=== PATIENT | female | born 1960 | race Caucasian/White ===

== ENCOUNTER 2019-11-01 01:25 | Emergency (ER) | payer OTHER, SELFPAY ==
[2019-11-01 03:05] LABS: Absolute Lymphocytes (CBC) 0.5 K/uL (0.7-4.9); Basophils % 0.7 % (0-1.3); Hematocrit 37.4 % (36.0-45.0); Lymphocytes % 18.1 % (15.3-44.8); MPV 7.3 fL (7.6-11.3); RBC Red Blood Cell Count 4.32 M/uL (3.86-4.86)
[2019-11-01] MEDS ORDERED: ONDANSETRON 4 MG/2 ML VIAL ONE (03:17)
[2019-11-01 03:26] LABS: Bilirubin Direct 0.2 mg/dL (0-0.2); Bilirubin Total 0.5 mg/dL (0.2-1.0); Protein, Total 7.1 g/dL (6.4-8.2)
--- NOTE | 2019-11-01 04:19 | EDPHYS ---
Physician Documentation [facility] Name: Mattie Cortes Age: 59 yrs Sex: Female : 1960 Arrival Date: 11/01/2019 Time: 01:30 Bed 7 Private MD: ED Physician Thomas Gonzalez HPI: 10/31 07:04 This 59 yrs old Female presents to ER via Wheelchair with complaints of tw4 Nausea, Dizziness, hungry but unableto eat. 07:04 The patient presents to the emergency department with nausea. tw4 Historical: - Allergies: 02:24 No Known Allergies; ea - Home Meds: 02:24 None [Active]; ea - PMHx: 02:24 Diabetes - NIDDM; ea - PSHx: 02:24 Cholecystectomy; bilateral shoulder; Hysterectomy; Knee surgery; ea - Immunization history:: Adult Immunizations up to date. - Social history:: Smoking status: unknown. ROS: 07:05 Constitutional: Negative for fever, chills, and weight loss, Eyes: Negative for injury, tw4 pain, redness, and discharge, Cardiovascular: Negative for chest pain, palpitations, and edema, Respiratory: Negative for shortness of breath, cough, wheezing, and pleuritic chest pain. 07:05 Back: Negative for injury and pain, MS/Extremity: Negative for injury and deformity, Skin: Negative for injury, rash, and discoloration. 07:05 Abdomen/GI: Positive for nausea, Negative for abdominal pain, nausea and vomiting, nausea, vomiting, and diarrhea. 07:05 Neuro: Positive for dizziness, Negative for altered mental status, gait disturbance, headache, hearing loss, loss of consciousness, numbness, seizure activity, speech changes, syncope, near syncope, tingling, tinnitus, tremor, visual changes, weakness, acute changes. Exam: 07:05 Constitutional: This is a well developed, well nourished patient who is awake, alert, tw4 and in no acute distress. Head/Face: Normocephalic, atraumatic. Chest/axilla: Normal chest wall appearance and motion. Nontender with no deformity. No lesions are appreciated. Cardiovascular: Regular rate and rhythm with a normal S1 and S2. No gallops, murmurs, or rubs. Normal PMI, no JVD. No pulse deficits. Respiratory: Lungs have equal breath sounds bilaterally, clear to auscultation and percussion. No rales, rhonchi or wheezes noted. No increased work of breathing, no retractions or nasal flaring. Abdomen/GI: Soft, non-tender, with normal bowel sounds. No distension or tympany. No guarding or rebound. No evidence of tenderness throughout. Back: No spinal tenderness. No costovertebral tenderness. Full range of motion. MS/ Extremity: Pulses equal, no cyanosis. Neurovascular intact. Full, normal range of motion. Neuro: Awake and alert, GCS 15, oriented to person, place, time, and situation. Cranial nerves II-XII grossly intact. Motor strength 5/5 in all extremities. Sensory grossly intact. Cerebellar exam normal. Normal gait. Vital Signs: 01:30 BP 126 / 68; Pulse 84; Resp 18; Temp 99; Pulse Ox 100% ; Weight 108.86 kg; Height 5 ft. ea 5 in. (165.10 cm); 04:15 BP 115 / 70; Pulse 80; Resp 17; Temp 98; Pulse Ox 97% on R/A; rv 01:30 Body Mass Index 39.94 (108.86 kg, 165.10 cm) ea MDM: 03:16 Patient medically screened. tw4 07:07 Differential diagnosis: Nonspecific abd pain, gastritis, pancreatitis, appendicitis. tw4 Data reviewed: vital signs, nurses notes. Data interpreted: patient clerical assistant: rhythm is Pulse oximetry: Interpretation: normal. Counseling: I had a detailed discussion with the patient and/or guardian regarding: the historical points, exam findings, and any diagnostic results supporting the discharge/admit diagnosis, lab results, radiology results. Medication response: Zofran relieved the patient's nausea. Response to treatment: and as a result, I will discharge patient. Special discussion: I discussed with the patient/guardian in detail that at this point there is no indication for admission to the hospital. It is understood, however, that if the symptoms persist or worsen the patient needs to return immediately for re-evaluation. ED course: Pt states she feel better after hydration and zofran. 10/31 02:26 Order name: Basic Metabolic Panel; Complete Time: 04:15 ea 10/31 04:15 Interpretation: Normal except: NA 132; GFR 55; GLUC 302. tw4 10/31 02:26 Order name: CBC with Diff; Complete Time: 04:15 10/31 04:16 Interpretation: Normal except: WBC 3.0; PLT 137; RDW 15.4; MELISSA% 75.2; MPV 7.3. 10/31 02:26 Order name: Creatinine for Radiology; Complete Time: 04:15 10/31 02:26 Order name: Hepatic Function; Complete Time: 04:15 10/31 04:16 Interpretation: Normal except: AST 72; ALB 3.0; GLOB 4.1; A/G 0.7. 10/31 02:26 Order name: Lipase; Complete Time: 04:15 10/31 04:16 Interpretation: Within normal limits: LIP 121. 10/31 02:26 Order name: IV Saline Lock; Complete Time: 03:09 10/31 02:26 Order name: Labs collected and sent; Complete Time: 03:09 ea Administered Medications: 03:11 Drug: NS 0.9% 1000 ml Route: IV; Rate: 1 bolus; Site: right antecubital; rv 04:50 Follow up: IV Status: Completed infusion; IV Intake: 1000ml rv 03:11 Drug: Zofran (Ondansetron) 4 mg Route: IVP; Site: right antecubital; rv 04:50 Follow up: Response: Marked relief of symptoms rv 04:09 Drug: NS 0.9% 1000 ml Route: IV; Rate: 1 bolus; Site: right antecubital; rv 04:49 Follow up: IV Status: Completed infusion; IV Intake: 500ml rv 04:29 Drug: Insulin Regular Human 4 units {Co-Signature: (Mattie Huynh RN).} Route: IVP; rv Site: right antecubital; 04:49 Follow up: Response: Medication administered at discharge. rv Disposition: 11/01/19 04:18 Discharged to Home. Impression: Dizziness and giddiness, Nausea, Dehydration, Thrombocytopenia, unspecified. - Condition is Stable. - Discharge Instructions: Dehydration, Adult, Dizziness, Nausea, Adult, Thrombocytopenia. - Prescriptions for Meclizine 25 mg Oral Tablet - take 1 tablet by ORAL route every 8 hours As needed; 30 tablet. Zofran 4 mg Oral Tablet - take 1 tablet by ORAL route every 12 hours As needed; 6 tablet. - Medication Reconciliation Form, Thank You Letter, Antibiotic Education, Prescription Opioid Use form. - Follow up: Private Physician; When: Upon discharge from the Emergency Department; Reason: Recheck today's complaints, Continuance of care, Re-evaluation by your physician. - Problem is new. - Symptoms have improved. Signatures: Dispatcher [employer] EDMS Hermelinda Jaime RN RN lp1 Asha Zafar RN RN ea Wadley, Terrence, MD MD tw4 Yonathan Triplett RN RN rv Amy Harris RN Corrections: (The following items were deleted from the chart) 04:19 04:18 11/01/2019 04:18 Discharged to Home. Impression: Dizziness and giddiness; Nausea. tw4 Condition is Stable. Forms are Medication Reconciliation Form, Thank You Letter, Antibiotic Education, Prescription Opioid Use. Follow up: Private Physician; When: Upon discharge from the Emergency Department; Reason: Recheck today's complaints, Continuance of care, Re-evaluation by your physician. Problem is new. Symptoms have improved. tw4 04:24 04:19 11/01/2019 04:18 Discharged to Home. Impression: Dizziness and giddiness; Nausea; tw4 Dehydration. Condition is Stable. Forms are Medication Reconciliation Form, Thank You Letter, Antibiotic Education, Prescription Opioid Use. Follow up: Private Physician; When: Upon discharge from the Emergency Department; Reason: Recheck today's complaints, Continuance of care, Re-evaluation by your physician. Problem is new. Symptoms have improved. tw4 04:51 04:24 11/01/2019 04:18 Discharged to Home. Impression: Dizziness and giddiness; Nausea; rv Dehydration; Thrombocytopenia, unspecified. Condition is Stable. Discharge Instructions: Dehydration, Adult, Dizziness, Nausea, Adult. Prescriptions for Meclizine 25 mg Oral Tablet - take 1 tablet by ORAL route every 8 hours As needed; 30 tablet, Zofran 4 mg Oral Tablet - take 1 tablet by ORAL route every 12 hours As needed; 6 tablet. and Forms are Medication Reconciliation Form, Thank You Letter, Antibiotic Education, Prescription Opioid Use. Follow up: Private Physician; When: Upon discharge from the Emergency Department; Reason: Recheck today's complaints, Continuance of care, Re-evaluation by your physician. Problem is new. Symptoms have improved. tw4
--- NOTE | 2019-11-01 04:19 | ER ---
Nurse's Notes [facility] Name: Mattie Cortes Age: 59 yrs Sex: Female : 1960 Arrival Date: 11/01/2019 Time: 01:30 Bed 7 Private MD: Diagnosis: Dizziness and giddiness;Nausea;Dehydration;Thrombocytopenia, unspecified Presentation: 10/31 01:30 Chief complaint: Patient states: Pt reports having nausea, dizziness and feeling hungry ea and unable to eat without feeling nauseous since Sunday. Coronavirus screen: The patient has NOT traveled to a country currently being monitored by the [facility] within the last 14 days. Ebola Screen: No symptoms or risks identified at this time. Initial Sepsis Screen: Does the patient meet any 2 criteria? No. Patient's initial sepsis screen is negative. Does the patient have a suspected source of infection? No. Patient's initial sepsis screen is negative. Risk Assessment: Do you want to hurt yourself or someone else? Patient reports no desire to harm self or others. 01:30 Method Of Arrival: Wheelchair ea 01:30 Acuity: SWATHI 3 ea 03:10 Onset of symptoms is unknown. rv Triage Assessment: 02:25 General: Appears in no apparent distress. Behavior is appropriate for age. Pain: Denies ea pain. Neuro: Level of Consciousness is awake, alert, obeys commands, Oriented to person, place, time. Respiratory: Airway is patent Respiratory effort is even, unlabored, Respiratory pattern is regular, symmetrical. GI: Reports nausea. Derm: Skin is pink, warm \T\ dry. Historical: - Allergies: 02:24 No Known Allergies; ea - Home Meds: 02:24 None [Active]; ea - PMHx: 02:24 Diabetes - NIDDM; ea - PSHx: 02:24 Cholecystectomy; bilateral shoulder; Hysterectomy; Knee surgery; ea - Immunization history:: Adult Immunizations up to date. - Social history:: Smoking status: unknown. Screenin:23 Abuse screen: Denies threats or abuse. Nutritional screening: No deficits noted. ea Tuberculosis screening: No symptoms or risk factors identified. Fall Risk None identified. Assessment: 03:09 General: Appears in no apparent distress. comfortable, Behavior is calm, cooperative. rv Pain: Denies pain. Neuro: Level of Consciousness is awake, alert, obeys commands, Oriented to person, place, time, situation. Cardiovascular: Patient's skin is warm and dry. Respiratory: Airway is patent. GI: Reports nausea. GI: Abdomen is round non-distended, Bowel sounds present X 4 quads. Derm: Skin is intact. 04:48 Reassessment: Patient appears in no apparent distress at this time. Patient and/or rv family updated on plan of care and expected duration. Pain level reassessed. Patient is alert, oriented x 3, equal unlabored respirations, skin warm/dry/pink. Vital Signs: 01:30 BP 126 / 68; Pulse 84; Resp 18; Temp 99; Pulse Ox 100% ; Weight 108.86 kg; Height 5 ft. ea 5 in. (165.10 cm); 04:15 BP 115 / 70; Pulse 80; Resp 17; Temp 98; Pulse Ox 97% on R/A; rv 01:30 Body Mass Index 39.94 (108.86 kg, 165.10 cm) ea ED Course: 01:30 Patient arrived in ED. es 01:50 Asha Zafar, KIRT is Primary Nurse. ea 02:23 Triage completed. ea 02:24 Patient has correct armband on for positive identification. Placed in gown. Bed in low ea position. Call light in reach. Side rails up X2. 02:24 Arm band placed on right wrist. Patient placed in an exam room, on a stretcher, on ea pulse oximetry. 02:27 Thomas Gonzalez MD is Attending Physician. tw4 03:55 No provider procedures requiring assistance completed. Inserted saline lock: 18 gauge rv in right antecubital area, using aseptic technique. Blood collected. 04:50 IV discontinued, intact, bleeding controlled, No redness/swelling at site. Pressure rv dressing applied. Administered Medications: 03:11 Drug: NS 0.9% 1000 ml Route: IV; Rate: 1 bolus; Site: right antecubital; rv 04:50 Follow up: IV Status: Completed infusion; IV Intake: 1000ml rv 03:11 Drug: Zofran (Ondansetron) 4 mg Route: IVP; Site: right antecubital; rv 04:50 Follow up: Response: Marked relief of symptoms rv 04:09 Drug: NS 0.9% 1000 ml Route: IV; Rate: 1 bolus; Site: right antecubital; rv 04:49 Follow up: IV Status: Completed infusion; IV Intake: 500ml rv 04:29 Drug: Insulin Regular Human 4 units {Co-Signature: cy (Mattie Huynh RN).} Route: IVP; rv Site: right antecubital; 04:49 Follow up: Response: Medication administered at discharge. rv Intake: 04:49 IV: 500ml; Total: 500ml. rv 04:50 IV: 1000ml; Total: 1500ml. rv Outcome: 04:18 Discharge ordered by MD. saravia 04:50 Discharged to home ambulatory, with family. rv 04:50 Condition: good 04:50 Discharge instructions given to patient, family, Instructed on discharge instructions, follow up and referral plans. medication usage, Demonstrated understanding of instructions, follow-up care, medications, Prescriptions given X 3. 04:51 Patient left the ED. rv Signatures: Emily Cole Elena, RN RN Thomas Dukes MD MD tw4 Yonathan Triplett RN RN rv Mattie benoit
[2019-11-01] MEDS ORDERED: INSULIN -REGULAR HUMAN 50 UNIT/0.5 ML ML ONE (04:32)
[2019-11-01 05:19] VITALS: BP 115/70; TEMP 98; O2SAT 97
== END 2019-11-01 04:51 | disposition home or self-care (01) ==
LOC: ER 01:25
DX: R11.0 Nausea (principal); E86.0 Dehydration; D69.6 Thrombocytopenia, unspecified
CPT/HCPCS: 36415; 80048; 80076; 83690; 85025; 96361; 96374; 96375; 99284; J2405

== ENCOUNTER 2024-05-19 11:36 | Emergency (ER) | payer OTHER ==
--- OUTSIDE RECORDS SUMMARY | 2024-05-19 11:38 | XMS REPORT | Continuity of Care Document ---
Author Name Unknown Address [address] [place] [address] [address] th[address] Address [address] [facility]. [address] [place] [address] Care Team Providers Care Conservation Educator Name Role Phone RICK ROSSI Attending Clinician Unavailable MELY CAMPA Attending Clinician Unavailable IVETTE ALBRIGHT Attending Clinician Unavailable LAB90 Attending Clinician Unavailable SAUNDRA GARCIA Attending Clinician Unavailable [email or web address] Attending Clinician Unavaila ble [email or web address] Admitting Clinician Unavaila ble Payers Payer Name Policy Type Policy Number Effective Date Expirati on Date Source [facility] [id number] 7 [id number] 2024 00:00:00 Social History Social Habit Start Date Stop Date Quantity Comments Source Sexual orientation Shanell Curtis - External Tobacco use and exposure 2024-04-23 00:00:00 2024-04-23 00:00:00 Smokeless tobacco non-user Jeffery Curtis - External Alcoholic beverage intake 2024-04-23 00:00:00 2024-04-23 00:00:00 Ex-drinker (finding) Jeffery Curtis - External History of Social function 2024-04-23 00:00:00 2024-04-23 00:00:00 Jeffery Curtis - External Education 2024-04-23 00:00:00 2024-04-23 00:00:00 16 Jeffery Curtis - External Sex assigned at 1960 00:00:00 1960 00:00:00 Jeffery Seybold - External Smoking Status Start Date Stop Date Source Never smoked tobacco Jeffery Curtis - External Medications Ordered Medication Name Filled Medication Name Start Date Stop Date Current Medication? Ordering Clinician Indication Dosage Frequency Signature (SIG) Comments Components Source Fluconazole 150 MG oral Tablet 04-23 15:22: 15 Yes [id number] 150mg Take 1 tablet (150 mg total) by mouth once for 1 dose. Jeffery Curtis - Externa l Cefdinir 300 MG oral Capsule 04-23 00:00: 00 Yes [id number] 300mg Q.5D Take 1 capsule (300 mg total) by mouth 2 times daily. Jeffery Claireold - Externa l Vital Signs Vital Name Observation Time Observation Value Comments S ource Systolic blood pressure 2024-04-23 20:06:00 134 mm[Hg] Jefferygamaliel Claireo ld - External Diastolic blood pressure 2024-04-23 20:06:00 81 mm[Hg] Jeffery gordyo ld - External Heart rate 2024-04-23 20:06:00 78 /min Florina brody Kirsten - External Respiratory rate 2024-04-23 20:06:00 16 /min Jeffery gordyady - External Body height 2024-04-23 20:06:00 162.6 cm Crystal peñaloza Seybold - External Body weight 2024-04-23 20:06:00 65.772 kg Crystal peñaloza Seybold - External BMI 2024-04-23 20:06:00 24.89 kg/m2 Crystal Claireold - External Oxygen saturation in Arterial blood by Pulse oximetry 2024-04-23 20:06:00 100 /min Jeffery Rowland ld - External Encounters Start Date/Time End Date/Time Encounter Type Admission Type Attending [facility] Care Department Encounter ID Source 2024-06-27 10:30:00 2024-06-27 10:30:00 Outpatient RICK ROSSI [id number] Jeffery Curtis 2024-06-02 15:30:00 2024-06-02 15:30:00 Outpatient MELY CAMPA [id number] Jeffery Curtis 2024-05-20 10:30:00 2024-05-20 10:30:00 Outpatient IVETTE ALBRIGHT [id number] [facility] 2024-05-02 14:35:00 2024-05-02 14:35:00 Outpatient LAB90 JEFFERY GIL [id number] Jeffery [facility] 2024-05-02 00:00:00 2024-05-02 00:00:00 Outpatient MELY CAMPA JEFFERY GIL [id number] [facility] 2024-04-25 00:00:00 2024-04-25 00:00:00 Outpatient LOKESH MELY GIL [id number] [facility] 2024-04-23 16:15:00 2024-04-23 16:15:00 Outpatient LAB90 JEFFERY GIL [id number] [facility] 2024-04-23 15:00:00 2024-04-23 15:00:00 Outpatient MELY CAMPA JEFFERY GIL [id number] [facility] 2024-04-17 08:30:00 2024-04-17 08:30:00 Outpatient SAUNDRA GARCIA [id number] [facility] 2023-06-20 00:00:00 2023-06-20 00:00:00 Outpatient [email or web address] [email or web address]_S PRIV [facility] [id number] [facility]
[2024-05-19] MEDS ORDERED: KETOROLAC 30 MG/ML INJ ONE (12:04)
[2024-05-19 12:35] LABS: Urine Bilirubin NEGATIVE (Negative); Urine Blood Negative (Negative); Urine Clarity Clear (Clear); Urine Color Yellow (Yellow); Urine Glucose NEGATIVE (Negative); Urine Ketones NEGATIVE (Negative); Urine Microscopic Reflex YN NO UMIC; Urine Nitrite NEGATIVE (Negative); Urine Protein NEGATIVE (Negative); Urine Urobilinogen Normal (Normal); Urine pH 6.5 (5.0-7.0)
[2024-05-19 12:39] LABS: Absolute Eosinophils 0.1 K/uL (0-0.5); Absolute Lymphocytes (CBC) 1.8 K/uL (0.7-4.9); Absolute Monocytes 0.4 K/uL (0.1-1.3); Absolute Neutrophil 3.7 K/uL (1.8-8.0); Basophils % 0.5 % (0-1.3); Eosinophils % 1.5 % (0-4.4); Hematocrit 38.2 % (36.0-45.0); Hemoglobin 12.9 g/dL (12.0-15.0); Lymphocytes % 29.9 % (15.3-44.8); MCH 32.2 pg (27.0-35.0); MCHC 33.9 g/dL (32.0-36.0); MCV 94.8 fL (80-100); MPV 7.4 fL (7.6-11.3); Monocytes % 6.5 % (3.3-12.3); Neutrophils % 61.6 % (41.7-73.7); Platelets 278 thou/uL (152-406); RBC Red Blood Cell Count 4.02 M/uL (3.86-4.86); Red Cell Distribution Width 12.5 % (12.1-15.2)
[2024-05-19 12:50] LABS: Albumin 4.3 g/dL (3.4-5.0); Albumin/Globulin Ratio 1.4 (1.1-1.8); Bilirubin Total 0.5 mg/dL (0.2-1.0); Globulin 3.1 g/dL (2.3-3.5); Protein, Total 7.4 g/dL (6.4-8.2)
--- NOTE | 2024-05-19 13:19 | RAD REPORT ---
EXAMINATION: CT ABDOMEN AND PELVIS WITH CONTRAST CLINICAL INDICATION: Abdominal pain TECHNIQUE: CT abdomen and pelvis was performed, after the administration of 100 cc Isovue-300.. Sagit humphrey and coronal reconstructions were obtained. One or more of the following dose reduction techniques were used: Automated exposure control, adjustment of the mA and/or kV according to patien t size, and/or iterative reconstruction. Unless otherwise specified, incidental findings do not require dedicated imaging follow-up. [id number]. Oral contrast was not given which limits evaluation of b owel and appendix. COMPARISON: 2014 FINDINGS: Cholecystectomy The liver, spleen, pancreas, adrenals and right kidney appear unremarkable 2 cm left renal cyst There is no evidence of diverticulitis. Normal appendix Hysterectomy. No adnexal mass. Large amount stool present throughout colon Wall of the distal stomach appears thickened. : IMPRESSION: Large amount of stool present throughout the colon Apparent thickening wall of the distal stomach could be secondary to incomplete distention or inflamm ation
[2024-05-19] MEDS ORDERED: TRAMADOL HCL 50 MG TAB ONE (14:01)
--- NOTE | 2024-05-19 14:04 | ER ---
Nurse's Notes [facility] Name: Mattie Cortes Age: 64 yrs Sex: Female : 1960 Arrival Date: 05/19/2024 Time: 11:36 Bed 7 Private MD: Diagnosis: Dysuria;Constipation, unspecified Presentation: 05/19 11:42 Chief complaint: Patient states: was here last week, is having vaginal pain/pressure, iw burning all the time. Coronavirus screen: At this time, the client does not indicate any symptoms associated with coronavirus-19. Ebola Screen: No symptoms or risks identified at this time. Initial Sepsis Screen: Does the patient meet any 2 criteria? No. Patient's initial sepsis screen is negative. Does the patient have a suspected source of infection? No. Patient's initial sepsis screen is negative. Risk Assessment: Do you want to hurt yourself or someone else? Patient reports no desire to harm self or others. Onset of symptoms was January 2024. 11:42 Method Of Arrival: Ambulatory iw 11:42 Acuity: SWATHI 3 iw Triage Assessment: 11:46 General: Appears uncomfortable, Behavior is anxious, crying. Pain: Complains of pain in iw pelvis. Historical: - Allergies: 11:42 No Known Allergies; iw - PMHx: 11:42 Diabetes - NIDDM; iw - PSHx: 11:42 Bladder stretched; Cholecystectomy; Total abdominal hysterectomy; iw - Family history:: not pertinent. - Hospitalizations: : No recent hospitalization is reported. Screenin:00 [facility] ED Fall Risk Assessment (Adult) History of falling in the last 3 months, aa5 including since admission No falls in past 3 months (0 pts) Confusion or Disorientation No (0 pts) Intoxicated or Sedated No (0 pts) Impaired Gait No (0 pts) Mobility Assist Device Used No (0 pt) Altered Elimination No (0 pt) Score/Fall Risk Level 0 - 2 = Low Risk Oriented to surroundings, Maintained a safe environment, Educated pt \T\ family on fall prevention, incl call for assistance when getting out of bed. Abuse screen: Denies threats or abuse. Nutritional screening: No deficits noted. Tuberculosis screening: No symptoms or risk factors identified. Assessment: 12:00 General: Appears uncomfortable, Behavior is calm, cooperative. Pain: Complains of pain aa5 in vaginal Quality of pain is described as burning, pressure, Pain began approximately 2-3 months ago. Neuro: Level of Consciousness is awake, alert, obeys commands, Oriented to person, place, time, situation. Cardiovascular: Patient's skin is warm and dry. Respiratory: Airway is patent Respiratory effort is even, unlabored, Respiratory pattern is regular, symmetrical. GI: No signs and/or symptoms were reported involving the gastrointestinal system. : Reports vaginal burning and pressure Denies burning with urination, discharge, inability to void, urinary frequency, vaginal bleeding. EENT: No signs and/or symptoms were reported regarding the EENT system. Derm: Skin is pink, warm \T\ dry. Musculoskeletal: Range of motion: intact in all extremities. 12:20 Reassessment: Patient is alert, oriented x 3, equal unlabored respirations, skin aa5 warm/dry/pink. 14:04 Reassessment: Patient is alert, oriented x 3, equal unlabored respirations, skin aa5 warm/dry/pink. Patient states feeling better. 14:40 Reassessment: Patient is alert, oriented x 3, equal unlabored respirations, skin aa5 warm/dry/pink. Vital Signs: 11:42 BP 124 / 78; Pulse 91; Resp 16; Temp 97.8; Pulse Ox 100% on R/A; iw 14:04 BP 126 / 80; Pulse 88; Resp 16 S; Pulse Ox 100% on R/A; aa5 ED Course: 11:38 Patient arrived in ED. ra3 11:38 Phil Hawk MD is Attending Physician. rn 11:44 Triage completed. iw 11:45 Arm band placed on. iw 11:59 Corine Bradshaw, RN is Primary Nurse. aa5 12:00 Patient has correct armband on for positive identification. Bed in low position. Call aa5 light in reach. Side rails up X 1. Adult w/ patient. 12:12 Initial lab(s) drawn, by me, sent to lab. Urine collected: clean catch specimen, sent aa5 to lab. Inserted saline lock: 20 gauge in right antecubital area, using aseptic technique. Blood collected. Flushed with 10 mL NS. 13:03 CT Abd/Pelvis - IV Contrast Only In Process Unspecified. EDMS 14:40 No provider procedures requiring assistance completed. IV discontinued, intact, aa5 bleeding controlled, No redness/swelling at site. Pressure dressing applied. Administered Medications: 12:20 Drug: Ketorolac IVP 15 mg IVP once Route: IVP; Site: right antecubital; aa5 12:30 Follow up: Response: No adverse reaction aa5 14:02 Drug: traMADol PO 50 mg PO once Route: PO; aa5 14:40 Follow up: Response: No adverse reaction aa5 Medication: 13:54 VIS not applicable for this client. aa5 Outcome: 14:03 Discharge ordered by . rn 14:40 Discharged to home ambulatory, with family, aa5 14:40 Condition: stable 14:40 Discharge instructions given to patient, Instructed on discharge instructions, follow up and referral plans. medication usage, Demonstrated understanding of instructions, follow-up care, medications, Prescriptions given X 1, 14:42 Patient left the ED. aa5 Signatures: Dispatcher [employer] EDMeghana Thompson RN RN iw Nieto, Roman, MD MD rn Calderon, Audri, RN RN aa5 Joaquina Hollis 3
--- NOTE | 2024-05-19 14:04 | EDPHYS ---
Physician Documentation [facility] Name: Mattie Cortes Age: 64 yrs Sex: Female : 1960 Arrival Date: 05/19/2024 Time: 11:36 Bed 7 Private MD: ED Physician Phil Hawk HPI: 05/19 12:33 This 64 yrs old Female presents to ER via Ambulatory with complaints of Urinary Problem.rn 12:33 The patient presents with urinary symptoms. Onset: The symptoms/episode began/occurred rn "Months ago". Associated signs and symptoms: Pertinent positives: dysuria, urinary frequency, Pertinent negatives: fever, hematuria, vaginal bleeding, vaginal discharge. The patient has experienced similar episodes in the past. Patient reports months of pelvic pressure and urinary symptoms. Patient states "feels like my bottom is coming out ". Denies vaginal discharge or bleeding. Reports increased urinary frequency and dysuria. Seen here a week ago for possible urinary retention. Has appointment with image consultant tomorrow. Denies unintentional weight loss.. Historical: - Allergies: 11:42 No Known Allergies; iw - PMHx: 11:42 Diabetes - NIDDM; iw - PSHx: 11:42 Bladder stretched; Cholecystectomy; Total abdominal hysterectomy; iw - Family history:: not pertinent. - Hospitalizations: : No recent hospitalization is reported. ROS: 12:33 Constitutional: Negative for fever, chills, and weight loss, Cardiovascular: Negative rn for chest pain, palpitations, and edema, Respiratory: Negative for shortness of breath, cough, wheezing, and pleuritic chest pain, Abdomen/GI: Negative for abdominal pain, nausea, vomiting, diarrhea, and constipation, Back: Negative for injury and pain, : Positive for dysuria and increased urinary frequency Neuro: Negative for headache, weakness, numbness, tingling, and seizure, Exam: 12:33 Constitutional: This is a well developed, well nourished patient who is awake, alert, rn tearful Cardiovascular: Regular rate and rhythm. No pulse deficits. Respiratory: No increased work of breathing, no retractions or nasal flaring. Abdomen/GI: Soft, non-tender Neuro: Awake and alert, GCS 15. Motor strength 5/5 in all extremities. Cerebellar exam normal. Normal gait. Vital Signs: 11:42 BP 124 / 78; Pulse 91; Resp 16; Temp 97.8; Pulse Ox 100% on R/A; iw 14:04 BP 126 / 80; Pulse 88; Resp 16 S; Pulse Ox 100% on R/A; aa5 MDM: 11:38 Patient medically screened. rn 14:01 Differential diagnosis: kidney stone, malignancy, nonspecific abdominal pain, urinary rn tract infection, vaginosis. Data reviewed: vital signs, nurses notes, lab test result(s), radiologic studies, CT scan, and as a result, I will discharge patient. Counseling: I had a detailed discussion with the patient and/or guardian regarding the historical points, exam findings, and any diagnostic results supporting the discharge/admit diagnosis, lab results, radiology results, the need for outpatient follow up, to return to the emergency department if symptoms worsen or persist or if there are any questions or concerns that arise at home. Special discussion: I discussed with the patient/guardian in detail that at this point there is no indication for admission to the hospital. It is understood, however, that if the symptoms persist or worsen the patient needs to return immediately for re-evaluation. Special discussion: Based on the history and exam findings, there is no indication for further emergent testing or inpatient evaluation. I discussed with the patient/guardian the need to see the OB Gyne specialist for further evaluation of the symptoms. ED course: CT without acute findings. Patient with symptoms for months, no signs of urinary retention or bladder distention. Stable vital signs. Improved with Toradol and tramadol. Has appointment with urogynecology tomorrow. Return precautions given and understood.. 05/19 11:39 Order name: Urinalysis w/ reflexes; Complete Time: 13:30 rn 05/19 11:51 Order name: CBC with Diff; Complete Time: 13:30 rn 05/19 11:51 Order name: CMP; Complete Time: 13:30 rn 05/19 11:51 Order name: CT Abd/Pelvis - IV Contrast Only; Complete Time: 13:30 rn 05/19 11:51 Order name: IV Saline Lock; Complete Time: 12:26 rn 05/19 11:51 Order name: Labs collected and sent; Complete Time: 12:26 rn Administered Medications: 12:20 Drug: Ketorolac IVP 15 mg IVP once Route: IVP; Site: right antecubital; aa5 12:30 Follow up: Response: No adverse reaction aa5 14:02 Drug: traMADol PO 50 mg PO once Route: PO; aa5 14:40 Follow up: Response: No adverse reaction aa5 Disposition Summary: 05/19/24 14:03 Discharge Ordered Notes: Location: Home rn Problem: new rn Symptoms: have improved rn Condition: Stable rn Diagnosis - Dysuria rn - Constipation, unspecified rn Followup: rn - With: Private Physician - When: Tomorrow - Reason: Recheck today's complaints, Re-evaluation by your physician Discharge Instructions: - Discharge Summary Sheet rn - Constipation, Adult rn - Dysuria rn Forms: - Medication Reconciliation Form rn - Antibiotic harness fitter - Prescription Opioid Use rn - Patient Portal Instructions rn - Leadership Thank You Letter rn Prescriptions: - Tramadol 50 mg Oral Tablet - take 1 tablet ORAL route every 8 hours as needed; 12 tablet; Refills: 0, rn Product Selection Permitted Signatures: Dispatcher [employer] Meghana Moreno, RN Phil Stanford MD MD rn Calderon, Audri, RN RN aa5
[2024-05-19 14:58] VITALS: BP 124/78; TEMP 97.8; O2SAT 100
== END 2024-05-19 14:42 | disposition home or self-care (01) ==
LOC: ER 11:36
DX: R30.0 Dysuria (principal); K59.00 Constipation, unspecified; E11.9 Type 2 diabetes mellitus without complications
CPT/HCPCS: 85025; 36415; 81003; 80053; 74177; Q9967; 96374; 99284

== ENCOUNTER 2024-05-20 06:19 | Observation (INO) | payer OTHER ==
--- OUTSIDE RECORDS SUMMARY | 2024-05-20 06:22 | XMS REPORT | Continuity of Care Document ---
Author Name Unknown Address [address] [place] [address] [address] [place], [place] [address] [place] [address] thconnect Address [address] [facility] [address] [place] [address] Care Team Providers Care Ladies' Hat Trimmer Name Role Phone RICK ROSSI Attending Clinician Unavailable MELY CAMPA Attending Clinician Unavailable IVETTE ALBRIGHT Attending Clinician Unavailable LAB90 Attending Clinician Unavailable SAUNDRA GARCIA Attending Clinician Unavailable [email or web address] Attending Clinician Unavaila ble [email or web address] Admitting Clinician Unavaila ble Payers Payer Name Policy Type Policy Number Effective Date Expirati on Date Source [facility] [id number] 7 [id number] 2024 00:00:00 Social History Social Habit Start Date Stop Date Quantity Comments Source Sexual orientation Shanell Curtis - External Tobacco use and exposure 2024-04-23 00:00:00 2024-04-23 00:00:00 Smokeless tobacco non-user Jenelle Curtis - External Alcoholic beverage intake 2024-04-23 00:00:00 2024-04-23 00:00:00 Ex-drinker (finding) Jenelle Curtis - External History of Social function 2024-04-23 00:00:00 2024-04-23 00:00:00 Jenelle Curtis - External Education 2024-04-23 00:00:00 2024-04-23 00:00:00 16 Jenelle Curtis - External Sex [birth year] at 1960 00:00:00 1960 00:00:00 Jenelle Curtis - External Smoking Status Start Date Stop Date Source Never smoked tobacco Jenelle Curtis - External Medications Ordered Medication Name Filled Medication Name Start Date Stop Date Current Medication? Ordering Clinician Indication Dosage Frequency Signature (SIG) Comments Components Source Fluconazole 150 MG oral Tablet 04-23 15:22: 15 Yes [id number] 150mg Take 1 tablet (150 mg total) by mouth once for 1 dose. Jenelle Claireold - Externa l Cefdinir 300 MG oral Capsule 04-23 00:00: 00 Yes [id number] 300mg Q.5D Take 1 capsule (300 mg total) by mouth 2 times daily. Jenelle Curtis - Externa l Vital Signs Vital Name Observation Time Observation Value Comments S ource Systolic blood pressure 2024-04-23 20:06:00 134 mm[Hg] Jenelle gordyo ld - External Diastolic blood pressure 2024-04-23 20:06:00 81 mm[Hg] Jenelle Claireo ld - External Heart rate 2024-04-23 20:06:00 78 /min Florina brody gordyold - External Respiratory rate 2024-04-23 20:06:00 16 /min Jenelle maddie - External Body height 2024-04-23 20:06:00 162.6 cm Crystal anabela Seybold - External Body weight 2024-04-23 20:06:00 65.772 kg Crystal ey Seybold - External BMI 2024-04-23 20:06:00 24.89 kg/m2 Crystal anabela Claireold - External Oxygen saturation in Arterial blood by Pulse oximetry 2024-04-23 20:06:00 100 /min Jenelle Rowland ld - External Encounters Start Date/Time End Date/Time Encounter Type Admission Type Attending [facility] Care Department Encounter ID Source 2024-06-27 10:30:00 2024-06-27 10:30:00 Outpatient RICK ROSSI [id number] Jenelle Curtis 2024-06-02 15:30:00 2024-06-02 15:30:00 Outpatient MELY CAMPA [id number] Jenelle Curtis 2024-05-20 10:30:00 2024-05-20 10:30:00 Outpatient IVETTE ALBRIGHT [id number] Jenelle Curtis 2024-05-02 14:35:00 2024-05-02 14:35:00 Outpatient LAB90 JENELLE GIL [id number] Jenelle [facility] 2024-05-02 00:00:00 2024-05-02 00:00:00 Outpatient MELY CAMPA JENELLE GIL [id number] Jenelle [facility] 2024-04-25 00:00:00 2024-04-25 00:00:00 Outpatient MELY CAMPA [id number] [facility] 2024-04-23 16:15:00 2024-04-23 16:15:00 Outpatient LAB90 JENELLE GIL [id number] [facility] 2024-04-23 15:00:00 2024-04-23 15:00:00 Outpatient LOKESH MELY JENELLE GIL [id number] [facility] 2024-04-17 08:30:00 2024-04-17 08:30:00 Outpatient SAUNDRA GARCIA [id number] [facility] 2023-06-20 00:00:00 2023-06-20 00:00:00 Outpatient [email or web address] [facility] [id number] [facility]
[2024-05-20 06:45] LABS: Absolute Eosinophils 0.1 K/uL (0-0.5); Absolute Lymphocytes (CBC) 1.6 K/uL (0.7-4.9); Absolute Monocytes 0.4 K/uL (0.1-1.3); Absolute Neutrophil 2.3 K/uL (1.8-8.0); Basophils % 0.9 % (0-1.3); Eosinophils % 2.4 % (0-4.4); Hematocrit 37.1 % (36.0-45.0); Hemoglobin 13.2 g/dL (12.0-15.0); Lymphocytes % 35.2 % (15.3-44.8); MCHC 35.4 g/dL (32.0-36.0); MCV 93.2 fL (80-100); MPV 7.6 fL (7.6-11.3); Monocytes % 9.1 % (3.3-12.3); Neutrophils % 52.4 % (41.7-73.7); Platelets 262 thou/uL (152-406); RBC Red Blood Cell Count 3.98 M/uL (3.86-4.86); Red Cell Distribution Width 12.2 % (12.1-15.2)
[2024-05-20 06:59] LABS: ALT/SGPT 25 U/L (13-56); AST/SGOT 27 U/L (15-37); Albumin 3.7 g/dL (3.4-5.0); Albumin/Globulin Ratio 1.3 (1.1-1.8); Alkaline Phosphatase 81 U/L (45-117); Anion Gap 7.9 mEq/L (5.0-15.0); BUN Blood Urea Nitrogen 11 mg/dL (7-18); Bicarbonate 26 mEq/L (21-32); Bilirubin Total 0.5 mg/dL (0.2-1.0); Globulin 2.9 g/dL (2.3-3.5); Glomerular Filtration Rate 97 ml/min (=/>90); Glucose Level 93 mg/dL (74-106); Potassium 3.9 mEq/L (3.5-5.1); Protein, Total 6.6 g/dL (6.4-8.2); Sodium Level 129 mEq/L (136-145); Troponin High Sensitivity 4.5 pg/mL (<58.9)
[2024-05-20 07:00] LABS: Bilirubin Direct < 0.2 mg/dL (0-0.2); Bilirubin Indirect, Calculated 0.3 mg/dL (0.2-0.8)
[2024-05-20] MEDS ORDERED: NA CHLORIDE 0.9% 1,000 ML ONE ×2 (07:17→07:37)
[2024-05-20] MEDS ORDERED: ONDANSETRON 4 MG/2 ML VIAL ONE (07:17)
--- NOTE | 2024-05-20 07:30 | RAD REPORT ---
EXAMINATION: ONE VIEW CHEST XR CLINICAL INDICATION: dizziness TECHNIQUE: Frontal chest projection is submitted. Examination is limited by patient positioning and t echnique. COMPARISON: No prior exam. FINDINGS: The lungs are well inflated and clear. The heart is normal in size. No displaced fractures identified . IMPRESSION: No acute intrathoracic abnormalities.
[2024-05-20] MEDS ORDERED: FAMOTIDINE 20 MG/2 ML VIAL IV ONE (07:37)
[2024-05-20] MEDS ORDERED: NA CHLORIDE 0.9% 100 ML ONE (07:38)
[2024-05-20] MEDS ORDERED: CEFEPIME 1 GM/VIAL ONE (07:38)
--- NOTE | 2024-05-20 07:56 | RAD REPORT ---
EXAM: CT CHEST, ABDOMEN AND PELVIS WITHOUT CONTRAST CLINICAL INDICATION: ABDOMINAL DISTENTION TECHNIQUE: CT chest, abdomen and pelvis was performed without contrast, as per department protocol. A xial, sagittal and coronal reconstructions were obtained. One or more of the following dose reduction techniques were used: Automated exposure control, adjustment of the mA and/or kV according to patient size, and/or iterative reconstruction. Unless otherwise specified, incidental findings do not require dedicated imaging follow-up. Examination is limited by the lack of intravenous contrast material. COMPARISON: 05/19/2024 FINDINGS: LUNGS: No evidence of airspace or interstitial process. No nodules. PLEURA: No pleural effusion. No pneumothorax. MEDIASTINUM AND LYMPH NODES: No mediastinal mass or fluid collection. Normal size mediastinal, hilar, and axillary lymph nodes. OSSEOUS STRUCTURES AND CHEST WALL: Intact. LIVER: Normal in size and contour. No focal lesion or biliary dilatation. Cholecystectomy clips. PANCREAS: No mass, ductal dilation, or leigh-pancreatic fluid. SPLEEN: Normal size. No focal lesion. ADRENALS: Normal; no mass. KIDNEYS: Normal size and contour. No hydronephrosis. URINARY BLADDER: Normal contour. GASTROINTESTINAL TRACT: No bowel obstruction, free air, significant free fluid or abscess. Moderate stool retained throughout the colon. Scattered diverticulosis coli without diverticulitis. APPENDIX: Normal appendix. LYMPH NODES: No lymphadenopathy. MUSCULOSKELETAL: Mild lower thoracic spondylosis. IMPRESSION: No acute or significant abnormalities seen in the chest, abdomen or pelvis. Moderate retained stool t hroughout the colon.
--- NOTE | 2024-05-20 08:09 | ER ---
Nurse's Notes [facility] Name: Mattie Cortes Age: 64 yrs Sex: Female : 1960 Arrival Date: 05/20/2024 Time: 06:19 Bed 6 Private MD: Diagnosis: Dehydration;Constipation;Weakness;Hypotension, unspecified;Hypo-osmolality and hyponatremia Presentation: 05/20 06:20 Chief complaint: Patient states: dizziness and weakness after taking stool softener. i lg3 think i have a prolapsed bladder. pain to vagina 03/29. Coronavirus screen: Client denies travel out of the [place] in the last 14 days. At this time, the client does not indicate any symptoms associated with coronavirus-19. Ebola Screen: No symptoms or risks identified at this time. Initial Sepsis Screen: Does the patient meet any 2 criteria? No. Patient's initial sepsis screen is negative. Does the patient have a suspected source of infection? No. Patient's initial sepsis screen is negative. Risk Assessment: Do you want to hurt yourself or someone else? Patient reports no desire to harm self or others. Onset of symptoms was May 20, 2024. 06:20 Method Of Arrival: EMS: [facility] lg3 06:20 Acuity: SWATHI 3 lg3 Triage Assessment: 06:22 General: Appears in no apparent distress. uncomfortable, Behavior is cooperative, lg3 anxious. Pain: Complains of pain in pelvis. EENT: No deficits noted. No signs and/or symptoms were reported regarding the EENT system. Neuro: No deficits noted. Shane Agitation-Sedation Scale (RASS): 0 - Alert and Calm Level of Consciousness is awake, alert, obeys commands, Oriented to person, place, time, situation, Reports dizziness, weakness. Cardiovascular: No deficits noted. Denies chest pain, shortness of breath, Capillary refill < 3 seconds Clubbing of nail beds is absent JVD is absent Patient's skin is warm and dry. Respiratory: No deficits noted. Airway is patent Respiratory effort is even, unlabored, Respiratory pattern is regular, symmetrical. GI: No deficits noted. Abdomen is flat, non-distended. : No deficits noted. Reports pain. Derm: No deficits noted. No signs and/or symptoms reported regarding the dermatologic system. Skin is intact, is healthy with good turgor, Skin is dry, Skin is normal, Skin temperature is warm. Musculoskeletal: No deficits noted. No signs and/or symptoms reported regarding the musculoskeletal system. Circulation, motion, and sensation intact. Range of motion: intact in all extremities. Historical: - Allergies: 06:22 No Known Allergies; lg3 - Home Meds: 06:22 Tramadol Oral [Active]; lg3 - PMHx: 06:22 Diabetes - NIDDM; uterine cancer (Diabetes - NIDDM); lg3 - PSHx: 06:22 Bladder stretched; Cholecystectomy; Total abdominal hysterectomy; lg3 - Immunization history:: Adult Immunizations up to date. - Infectious Disease History:: Denies. - Social history:: Smoking status: Patient denies any tobacco usage or history of. Patient/guardian denies using alcohol, street drugs. - Family history:: not pertinent. Screenin:24 [facility] ED Fall Risk Assessment (Adult) History of falling in the last 3 months, lg3 including since admission No falls in past 3 months (0 pts) Confusion or Disorientation No (0 pts) Intoxicated or Sedated No (0 pts) Impaired Gait No (0 pts) Mobility Assist Device Used No (0 pt) Altered Elimination No (0 pt) Score/Fall Risk Level 0 - 2 = Low Risk Oriented to surroundings, Maintained a safe environment, Educated pt \\T\\ family on fall prevention, incl call for assistance when getting out of bed, Assessed \\T\\ reinforced patient's understanding of fall precautions. Abuse screen: Denies threats or abuse. Denies injuries from another. Nutritional screening: No deficits noted. Tuberculosis screening: No symptoms or risk factors identified. Assessment: 06:24 General: see triage assessment. lg3 07:15 Reassessment: PATIENT REPORTS FEELING NAUSEA, AND LIKE GOING TO PASS OUT. BP DROPPED TO db 64/35. PATIENT PLACED IN [place] AND STARTED NS FLUID BOLUS. BP NOW 99/45. 08:23 Reassessment: Patient appears in no apparent distress at this time. Patient and/or db family updated on plan of care and expected duration. Pain level reassessed. Patient is alert, oriented x 3, equal unlabored respirations, skin warm/dry/pink. Patient states feeling better. Patient states symptoms have improved. Neuro: Level of Consciousness is awake, alert, obeys commands, Oriented to person, place, time, situation. 09:33 Reassessment: Patient appears in no apparent distress at this time. Patient and/or db family updated on plan of care and expected duration. Pain level reassessed. Patient is alert, oriented x 3, equal unlabored respirations, skin warm/dry/pink. PATIENT AMBULATORY TO RESTROOM Patient states feeling better. Patient states symptoms have improved. 10:00 Reassessment: Patient appears in no apparent distress at this time. Patient and/or db family updated on plan of care and expected duration. Pain level reassessed. Patient is alert, oriented x 3, equal unlabored respirations, skin warm/dry/pink. PATIENT STATES DOES NOT WANT ENEMA IN ROOM AND DOES NOT WANT ENEMA IN BATHROOM DOWN HERE. 10:41 Reassessment: Patient appears in no apparent distress at this time. Patient and/or db family updated on plan of care and expected duration. Pain level reassessed. Patient is alert, oriented x 3, equal unlabored respirations, skin warm/dry/pink. PATIENT AMBULATORY TO RESTROOM. 11:43 Reassessment: Patient appears in no apparent distress at this time. Patient and/or db family updated on plan of care and expected duration. Pain level reassessed. Patient is alert, oriented x 3, equal unlabored respirations, skin warm/dry/pink. OFFERED PATIENT FLEETS ENEMA. PATIENT STATES WANTS TO WAIT TILL IS IN ADMISSION ROOM. 12:30 Reassessment: SEE [facility] FOR CONTINUED PATIENT CARE CHARTING. db 16:56 Reassessment: CALLED TO NOTIFY PT IS ON WAY. NO ANSWER. db Vital Signs: 06:20 BP 110 / 88; Pulse 82; Resp 17 S; Temp 97.7(O); Pulse Ox 100% on R/A; Weight 62.14 kg lg3 (R); Height 5 ft. 4 in. (R); Pain 8/10; 07:00 BP 64 / 35; Pulse 51; Resp 20; Pulse Ox 99% on R/A; db 07:02 BP 77 / 46; Pulse 47; Pulse Ox 99% on R/A; db 07:06 BP 88 / 52; Pulse 68; Resp 18; Pulse Ox 100% on R/A; db 07:15 BP 99 / 45; Pulse 76; Resp 18; Pulse Ox 100% on R/A; db 07:30 BP 117 / 59; Pulse 67; Resp 18; Pulse Ox 99% on R/A; db 07:45 BP 139 / 89; Pulse 76; Resp 18; Pulse Ox 100% ; db 08:00 BP 118 / 69; Pulse 79; Resp 18; Pulse Ox 100% ; db 09:00 BP 109 / 50; Pulse 74; Resp 16; Pulse Ox 99% on R/A; db 10:00 BP 105 / 62; Pulse 70; Resp 16; Pulse Ox 99% on R/A; db 11:30 BP 103 / 54; Pulse 70; Resp 16; Pulse Ox 98% on R/A; db 06:20 Body Mass Index 23.52 (62.14 kg, 162.56 cm) lg3 06:20 Pain Scale: Adult lg3 Vitals: 11:30 Cardiac Rhythm Assessment Regular Sinus rhythm. db ED Course: 06:20 Patient arrived in ED. lg3 06:20 Francisca Contreras RN is Primary Nurse. lg3 06:22 Triage completed. lg3 06:22 Arm band placed on right wrist. lg3 06:23 Israel Alcala MD is Attending Physician. rt 06:24 Patient has correct armband on for positive identification. Placed in gown. Bed in low lg3 position. Call light in reach. Side rails up X 1. Client placed on continuous cardiac and pulse oximetry monitoring. NIBP monitoring applied. cafeteria monitor on. Door closed. Noise minimized. Warm blanket given. Pillow given. 06:24 Maintain EMS IV. Dressing intact. Good blood return noted. Site clean \\T\\ dry. Gauge \\T\\ lg 3 site: 20 LAC. Flushed with 10 mL NS. 06:34 Basic Metabolic Panel Sent. lg3 06:34 CBC with Diff Sent. lg3 06:34 LFT's Sent. lg3 06:34 Magnesium Sent. lg3 06:34 Troponin HS Sent. lg3 06:41 EKG done, by ED staff, reviewed by Israel Alcala MD. oe 07:15 Report given to KIRT GOMEZ. bm8 07:17 XRAY Chest (1 view) In Process Unspecified. EDMS 07:19 Attending Physician role handed off by Israel Alcala MD kelly 07:19 Marshal Cortes MD is Attending Physician. kelly 07:[address] via stretcher. db 07:45 First set of blood cultures drawn by me. Missed attempt(s): 22 gauge in right db antecubital area. Bleeding controlled, band aid applied, catheter tip intact. 07:48 CT Chest Abdomen Pelvis W/O Contrast In Process Unspecified. EDMS 08:03 Inserted saline lock: 22 gauge in left antecubital area, using aseptic technique. Blood db collected. Flushed with 10 mL NS. 08:07 Initial lab(s) drawn, by me, sent to lab. Second set of blood cultures drawn by me. db 08:08 Radha Taveras MD is Hospitalizing Provider. [facility] 14:48 1448 CM met with and her Yan at the bedside in the ED exam room. ane Patient identified by name and . Demogrpahic sheet confirmed. Patient states she lives with Yan in a single story home. No HH, home oxygen or other medical services. Patient reports that prior to admission, she performs ADLs independently and without physical limitations. No MPOA in place. Patient's preferred plan is to return home " sooner rather than later" upon discharge. Yan states he will be her transportation home. CM team will continue to follow and coordinate care during this hospital stay. 16:56 Provided Education on: ADMISSION . db 16:56 No provider procedures requiring assistance completed. Patient admitted, IV remains in db place. Administered Medications: 07:20 Drug: Ondansetron IVP 4 mg IVP once; over 2 minutes Route: IVP; Site: left antecubital; db 09:04 Follow up: Response: No adverse reaction db 07:20 Drug: NS 0.9% IV (20 ml/kg) 20 ml/kg IV at 1 bolus once Route: IV; Rate: 1 bolus; Site: db left antecubital; 16:55 Follow up: Response: No adverse reaction; IV Status: Completed infusion; IV Intake: db 1250ml 08:20 Drug: Famotidine IVP 20 mg IVP once; dilute with 10 mL 0.9% NaCl; give over 2 minutes db Route: IVP; Site: left antecubital; 09:05 Follow up: Response: No adverse reaction db 08:20 Drug: Cefepime IVPB 1 grams IVPB at 200 ml/hr once over 30 mins; (mix in NS 100 mL) db Route: IVPB; Rate: 200 ml/hr; Infused Over: 30 mins; Site: left antecubital; 09:03 Follow up: Response: No adverse reaction; IV Status: Completed infusion; IV Intake: db 100ml 10:00 Drug: NS 0.9% IV 1000 ml IV at 125 ml/hr continuous Route: IV; Rate: 125 ml/hr; Site: db left antecubital; 16:59 Follow up: Response: No adverse reaction; IV Status: Completed infusion; IV Intake: db 1000ml 16:55 Drug: Fleet Enema MS 133 ml MS once; may repeat once {Note: GIVEN TO PATIENT TO TAKE. db STATES WILL TAKE IN ADMISSION ROOM. NOTIFIED DR. PORTER.} Route: MS; 16:56 Follow up: Response: No adverse reaction db Medication: 08:23 VIS not applicable for this client. db Intake: 09:03 IV: 100ml; Total: 100ml. db 16:55 IV: 1250ml; Total: 1350ml. db 16:59 IV: 1000ml; Total: 2350ml. db Outcome: 08:09 Decision to Hospitalize by Provider. kelly 16:56 Admitted to Med/surg accompanied by tech, via wheelchair, room 209, Other FAXED TO UNIT db 16:56 Condition: stable 16:56 Instructed on the need for admit, 16:58 Patient left the ED. db Signatures: Dispatcher [employer] EDMarshal House MD MD cha Hall, Patricia, RN RN Melvin Shah Lacie, RN RN lg3 Candelaria Baxter RN RN db Israel Alcala MD MD rt McDonald, Brad RN RN bm8 Ann Oliver RN RN ane Corrections: (The following items were deleted from the chart) 07:26 07:23 Report given to KIRT GOMEZ [facility] 09:33 09:33 Reassessment: PATIENT AMBULATORY TO RESTROOM db db
--- NOTE | 2024-05-20 08:09 | EDPHYS ---
Physician Documentation [facility] Name: Mattie Cortes Age: 64 yrs Sex: Female : 1960 Arrival Date: 05/20/2024 Time: 06:19 Bed 6 Private MD: Marshal Hanna HPI: 05/20 06:26 This 64 yrs old Female presents to ER via EMS with complaints of Weakness. rt 06:26 Patient is appoint with your tile erector today for uterine prolapse. Was seen in the rt ED yesterday for constipationStates that she took a laxative today. States that it made her dizzy, described as lightheaded. Denies chest pain, shortness of breath. States that she is no longer dizzy. States that she wishes to keep her appointment with urogynecologist at 10 today. Symptoms are moderate in severity, no other aggravating or alleviating factors.. Historical: - Allergies: 06:22 No Known Allergies; lg3 - Home Meds: 06:22 Tramadol Oral [Active]; lg3 - PMHx: 06:22 Diabetes - NIDDM; uterine cancer (Diabetes - NIDDM); lg3 - PSHx: 06:22 Bladder stretched; Cholecystectomy; Total abdominal hysterectomy; lg3 - Immunization history:: Adult Immunizations up to date. - Infectious Disease History:: Denies. - Social history:: Smoking status: Patient denies any tobacco usage or history of. Patient/guardian denies using alcohol, street drugs. - Family history:: not pertinent. ROS: 06:26 Constitutional: Negative for fever, chills, and weight loss, Cardiovascular: Negative rt for chest pain, palpitations, and edema, Respiratory: Negative for shortness of breath, cough, wheezing, and pleuritic chest pain, MS/Extremity: Negative for injury and deformity, Skin: Negative for injury, rash, and discoloration, Neuro: Negative for headache, weakness, numbness, tingling, and seizure, 06:26 Abdomen/GI: Positive for constipation, Negative for abdominal pain, 06:26 Neuro: Positive for dizziness, Negative for loss of consciousness, Exam: 06:28 Constitutional: This is a well developed, well nourished patient who is awake, alert, rt and in no acute distress. Head/Face: Normocephalic, atraumatic. Chest/axilla: Normal chest wall appearance and motion. Nontender with no deformity. No lesions are appreciated. Cardiovascular: Regular rate and rhythm with a normal S1 and S2. No gallops, murmurs, or rubs. Normal PMI, no JVD. No pulse deficits. Respiratory: Lungs have equal breath sounds bilaterally, clear to auscultation and percussion. No rales, rhonchi or wheezes noted. No increased work of breathing, no retractions or nasal flaring. Abdomen/GI: Soft, non-tender, with normal bowel sounds. No distension or tympany. No guarding or rebound. No evidence of tenderness throughout. Skin: Warm, dry with normal turgor. Normal color with no rashes, no lesions, and no evidence of cellulitis. MS/ Extremity: Pulses equal, no cyanosis. Neurovascular intact. Full, normal range of motion. 06:34 ECG was reviewed by the Attending Physician. rt Vital Signs: 06:20 BP 110 / 88; Pulse 82; Resp 17 S; Temp 97.7(O); Pulse Ox 100% on R/A; Weight 62.14 kg lg3 (R); Height 5 ft. 4 in. (R); Pain 8/10; 07:00 BP 64 / 35; Pulse 51; Resp 20; Pulse Ox 99% on R/A; db 07:02 BP 77 / 46; Pulse 47; Pulse Ox 99% on R/A; db 07:06 BP 88 / 52; Pulse 68; Resp 18; Pulse Ox 100% on R/A; db 07:15 BP 99 / 45; Pulse 76; Resp 18; Pulse Ox 100% on R/A; db 07:30 BP 117 / 59; Pulse 67; Resp 18; Pulse Ox 99% on R/A; db 07:45 BP 139 / 89; Pulse 76; Resp 18; Pulse Ox 100% ; db 08:00 BP 118 / 69; Pulse 79; Resp 18; Pulse Ox 100% ; db 09:00 BP 109 / 50; Pulse 74; Resp 16; Pulse Ox 99% on R/A; db 10:00 BP 105 / 62; Pulse 70; Resp 16; Pulse Ox 99% on R/A; db 11:30 BP 103 / 54; Pulse 70; Resp 16; Pulse Ox 98% on R/A; db 06:20 Body Mass Index 23.52 (62.14 kg, 162.56 cm) lg3 06:20 Pain Scale: Adult lg3 MDM: 06:23 Patient medically screened. rt 08:09 Data reviewed: vital signs, nurses notes, lab test result(s), EKG, radiologic studies, kelly CT scan, plain films. Consideration of Admission/Observation Patient was admitted/placed on observation. Escalation of care including admission/observation considered. I considered the following discharge prescriptions or medication management in the emergency department Medications were administered in the Emergency Department. See MAR. Independent interpretation of the following test(s) in the Emergency Department EKG: See my EKG interpretation above. Test considered but Not performed: Ultrasound no abd usg. Historians other than the Patient: Spouse/Significant Other: . Care significantly affected by the following chronic conditions: Diabetes, Obesity, Cancer. Counseling: I had a detailed discussion with the patient and/or guardian regarding the historical points, exam findings, and any diagnostic results supporting the discharge/admit diagnosis, lab results, radiology results, the need for further work-up and treatment in the hospital. 05/20 06:26 Order name: Basic Metabolic Panel; Complete Time: 08:00 rt 05/20 06:26 Order name: CBC with Diff; Complete Time: 08:00 rt 05/20 06:26 Order name: LFT's; Complete Time: 08:00 rt 05/20 06:26 Order name: Magnesium; Complete Time: 08:00 rt 05/20 06:26 Order name: Troponin HS; Complete Time: 08:00 rt 05/20 07:21 Order name: NT PRO-BNP [facility] 05/20 07:21 Order name: PT-INR [facility] 05/20 07:21 Order name: Blood Culture Adult (2) [facility] 05/20 07:21 Order name: Lactate w/ 2H reflex if indic. [facility] 05/20 09:04 Order name: T4 Free EDNJ 05/20 09:04 Order name: Thyroid Stimulating Hormone EDNJ 05/20 09:04 Order name: Urinalysis w/ reflexes EDMS 05/20 09:04 Order name: Basic Metabolic Panel EDMS 05/20 09:04 Order name: Basic Metabolic Panel EDMS 05/20 09:04 Order name: CBC with Automated Diff EDMS 05/20 09:04 Order name: CBC with Automated Diff EDMS 05/20 09:04 Order name: Lipid Profile EDMS 05/20 09:04 Order name: Lipid Profile EDMS 05/20 09:04 Order name: Magnesium EDMS 05/20 09:04 Order name: Magnesium EDMS 05/20 09:04 Order name: Phosphorus EDMS 05/20 09:04 Order name: Phosphorus EDMS 05/20 09:04 Order name: Troponin High Sensitivity EDMS 05/20 09:04 Order name: Troponin High Sensitivity EDMS 05/20 09:04 Order name: Troponin High Sensitivity EDMS 05/20 06:26 Order name: XRAY Chest (1 view); Complete Time: 08:00 rt 05/20 07:21 Order name: CT Chest Abdomen Pelvis W/O Contrast; Complete Time: 08:00 kelly 05/20 06:26 Order name: EKG; Complete Time: 06:26 rt 05/20 06:26 Order name: Cardiac monitoring; Complete Time: 06:34 rt 05/20 06:26 Order name: EKG - Nurse/Tech; Complete Time: 06:34 rt 05/20 06:26 Order name: IV Saline Lock; Complete Time: 06:34 rt 05/20 06:26 Order name: Labs collected and sent; Complete Time: 06:34 rt 05/20 06:26 Order name: O2 Per Protocol; Complete Time: 06:34 rt 05/20 06:26 Order name: O2 Sat Monitoring; Complete Time: 06:34 rt 05/20 07:21 Order name: IV Saline Lock - Large Bore; Complete Time: 08:25 kelly EC:34 Rate is 64 beats/min. Rhythm is regular, Normal Sinus Rhythm with No ectopy. QRS Johnson rt is Normal. KS interval is normal. QRS interval is normal. QT interval is normal. No Q waves. T waves are Normal. No ST changes noted. Interpreted by me. Administered Medications: 07:20 Drug: Ondansetron IVP 4 mg IVP once; over 2 minutes Route: IVP; Site: left antecubital; db 09:04 Follow up: Response: No adverse reaction db 07:20 Drug: NS 0.9% IV (20 ml/kg) 20 ml/kg IV at 1 bolus once Route: IV; Rate: 1 bolus; Site: db left antecubital; 16:55 Follow up: Response: No adverse reaction; IV Status: Completed infusion; IV Intake: db 1250ml 08:20 Drug: Famotidine IVP 20 mg IVP once; dilute with 10 mL 0.9% NaCl; give over 2 minutes db Route: IVP; Site: left antecubital; 09:05 Follow up: Response: No adverse reaction db 08:20 Drug: Cefepime IVPB 1 grams IVPB at 200 ml/hr once over 30 mins; (mix in NS 100 mL) db Route: IVPB; Rate: 200 ml/hr; Infused Over: 30 mins; Site: left antecubital; 09:03 Follow up: Response: No adverse reaction; IV Status: Completed infusion; IV Intake: db 100ml 10:00 Drug: NS 0.9% IV 1000 ml IV at 125 ml/hr continuous Route: IV; Rate: 125 ml/hr; Site: db left antecubital; 16:59 Follow up: Response: No adverse reaction; IV Status: Completed infusion; IV Intake: db 1000ml 16:55 Drug: Fleet Enema KS 133 ml KS once; may repeat once {Note: GIVEN TO PATIENT TO TAKE. db STATES WILL TAKE IN ADMISSION ROOM. NOTIFIED DR. PORTER.} Route: KS; 16:56 Follow up: Response: No adverse reaction db Disposition Summary: 05/20/24 08:09 Hospitalization Ordered Notes: Hospitalization Status: Observation kelly Provider: Radha Taveras cha Condition: Fair kelly Problem: new kelly Symptoms: have improved kelly Bed/Room Type: Standard kelly Location: Telemetry/MedSurg (observation)(05/20/24 15:57) kb3 Room Assignment: [facility](05/20/24 15:57) kb3 Diagnosis - Dehydration kelly - Constipation kelly - Weakness kelly - Hypotension, unspecified kelly - Hypo-osmolality and hyponatremia kelly Forms: - Medication Reconciliation Form kelly - SBAR form kelly - Leadership Thank You Letter kelly Signatures: Dispatcher [employer] EDMS Estrella James Corey, MD MD cha Aguilar, Jose, RN RN ja1 Francisca Contreras, RN RN lg3 Daphney Stephen, RN RN kb3 Candelaria Baxter, RN RN db Israel Alcala MD MD rt Corrections: (The following items were deleted from the chart) 06:26 06:26 BASIC METABOLIC PANEL+C.LAB.BRZ ordered. EDMS EDMS 06:26 06:26 CBC+H.LAB.BRZ ordered. EDMS EDMS 06:26 06:26 HEPATIC FUNCTION+C.LAB.BRZ ordered. EDMS EDMS 06:26 06:26 MAGNESIUM+C.LAB.BRZ ordered. EDMS EDMS 06:26 06:26 Troponin High Sensitivity+C.LAB.BRZ ordered. EDMS EDMS 07:21 07:21 PROBNP+C.LAB.BRZ ordered. EDMS EDMS 07:21 07:21 PROTIME (+INR)+COAG.LAB.BRZ ordered. EDMS EDMS 07:21 07:21 BLOOD CULTURE*+BA.LAB.BRZ ordered. EDMS EDMS 07:21 07:21 LACTATE+C.LAB.BRZ ordered. EDMS EDMS 07:21 07:21 Chest Abdomen Pelvis Wo Con+CT.RAD.BRZ ordered. EDMS EDMS 09:13 08:09 Telemetry/MedSurg (observation) kelly bd 09:13 08:09 kelly bd 15:56 09:13 [facility] ER HOLD bd ja1 15:56 09:13 ERHOLD- bd ja1 15:57 15:56 Telemetry/MedSurg (observation) ja1 bd 15:57 15:56 209 ja1 bd 15:57 15:57 Telemetry/MedSurg (observation) bd kb3 15:57 15:57 209 bd kb3
[2024-05-20 08:24] LABS: PT Prothrombin Time 11.5 SECONDS (9.4-12.5); Protime INR 1.03
[2024-05-20] MEDS ORDERED: ACETAMINOPHEN 325 MG TABLET PO PRN (08:57)
[2024-05-20] MEDS: NA CHLORIDE 0.9% 1,000 ML IV SCH (09:00)
--- NOTE | 2024-05-20 09:04 | P.HP ---
Certification for Inpatient Patient admitted to: Observation With expected LOS: <2 Midnights Patient will require the following post-hospital care: None Practitioner: I am a practitioner with admitting privileges, knowledge of patient current condition, hospital course, and medical plan of care. Services: Services provided to patient in accordance with Admission requirements found in Title 42 Section 412.3 of the Code of Federal Regulations Patient History Date of Service: 05/20/24 Reason for admission: Dehydration, hypotension, weakness History of Present Illness: Mattie Cortes is a 64-year-old female with past medical history of diabetes mellitusNIDDM, uterine cancer who presents to the ED with chief complaint of lower abdominal pain, constipation, and syncopal episodes. She reports coming to the emergency room yesterday and being discharged with instructions to take MiraLAX, which she is afraid of taking because she feels like it will cause her to "pass out". On arrival blood pressure was significantly low with SBP 64, abdomen nontender/nondistended, Sodium 129, UA negative. Initial vitals BP 110 / 88; Pulse 82; Resp 17 S; Temp 97.7(O); Pulse Ox 100% on R/A CT abdomen pelvis with contrast reports "No acute or significant abnormalities seen in the chest, abdomen or pelvis. Moderate retained stool throughout the colon." Chest x-ray reports "No acute intrathoracic abnormalities." Mattie will be admitted to hospitalist service for further evaluation and treatment. Allergies No Known Allergies Allergy (Unverified 01/20/14 19:58) Home Medications: Tamsulosin [Flomax] 0.4 mg PO DAILY 05/20/24 - Past Medical/Surgical History -: Diabetes mellitusNIDDM -: Uterine cancer -: Bladder stretch -: Cholecystectomy -: Total abdominal hysterectomy - Family History Family History: Reviewed- Non-Contributory - Social History Smoking Status: Never smoker Alcohol use: No CD- Drugs: No Review of Systems General: Weakness Gastrointestinal: Abdominal Pain, Constipation Physical Examination - Physical Exam General: Alert, In no apparent distress, Oriented x3 HEENT: Atraumatic, Normocephalic, PERRLA Neck: Supple, 2+ carotid pulse no bruit Respiratory: Clear to auscultation bilaterally, Normal air movement Cardiovascular: No edema, Regular rate/rhythm, Normal S1 S2 Capillary refill: <2 Seconds Gastrointestinal: Normal bowel sounds, Soft and benign Musculoskeletal: No clubbing Integumentary: No rashes Neurological: Normal speech, Normal tone - Studies Laboratory Data (last 24 hrs) 05/20/24 05/20/24 05/20/24 08:07 06:30 06:30 WBC 4.40 Hgb 13.2 Hct 37.1 Plt Count 262 PT 11.5 INR 1.03 Sodium 129 L D Potassium 3.9 BUN 11 Creatinine 0.68 Glucose 93 Magnesium 2.0 Total Bilirubin 0.5 AST 27 ALT 25 Alkaline Phosphatase 81 Assessment and Plan - Plan Assessment and plan Significant Hypotension Syncopal episode -SBP 64 -Echo ordered -Monitor vitals Q4h -Gentle IV fluids given in the ED, will continue on the floor -Continuous telemetry -Troponin negative, serial pending -orthostatic vitals Hyponatremia Weakness Abdominal pain with constipation -Sodium 129 -Gentle IV fluids -Cefepime given in the ED -Fleet enema, docusate -NPO except meds with water Diabetes mellitusNIDDM -Accu-Chek with sliding scale insulin -hypoglycemia protocol DVT PPx SCD Full code LOS 2 days Discharge Plan: Home Plan to discharge in: 48 Hours - Advance Directives Does patient have a Living Will: No Does patient have a Durable POA for Healthcare: No
[2024-05-20 11:52] VITALS: BMI 23.5
[2024-05-20 12:02] LABS: Specific Gravity 1.009 (1.005-1.030); Urine Bilirubin NEGATIVE (Negative); Urine Blood Negative (Negative); Urine Clarity Clear (Clear); Urine Color Light-Yellow (Yellow); Urine Glucose NEGATIVE (Negative); Urine Ketones NEGATIVE (Negative); Urine Microscopic Reflex YN NO UMIC; Urine Nitrite NEGATIVE (Negative); Urine Protein NEGATIVE (Negative); Urine Urobilinogen Normal (Normal); Urine pH 7.5 (5.0-7.0)
[2024-05-20] MEDS ORDERED: FLEET ENEMA ADULT PR ONE (16:08)
[2024-05-20] MEDS: FLEET ENEMA ADULT PR ONE (16:54)
[2024-05-20] MEDS: DOCUSATE NA 100 MG CAP PO PRN (17:25)
[2024-05-20 18:30] VITALS: O2SAT 100
[2024-05-21 05:54] LABS: Absolute Eosinophils 0.1 K/uL (0-0.5); Absolute Lymphocytes (CBC) 1.4 K/uL (0.7-4.9); Absolute Monocytes 0.4 K/uL (0.1-1.3); Absolute Neutrophil 2.9 K/uL (1.8-8.0); Basophils % 0.8 % (0-1.3); Eosinophils % 1.9 % (0-4.4); Hematocrit 33.6 % (36.0-45.0); Hemoglobin 11.7 g/dL (12.0-15.0); Lymphocytes % 28.6 % (15.3-44.8); MCH 32.8 pg (27.0-35.0); MCHC 34.8 g/dL (32.0-36.0); MCV 94.1 fL (80-100); MPV 7.6 fL (7.6-11.3); Monocytes % 8.3 % (3.3-12.3); Neutrophils % 60.4 % (41.7-73.7); Platelets 227 thou/uL (152-406); RBC Red Blood Cell Count 3.58 M/uL (3.86-4.86); Red Cell Distribution Width 12.5 % (12.1-15.2)
[2024-05-21 06:18] LABS: Magnesium 1.8 mg/dL (1.6-2.4); Phosphorus 3.1 mg/dL (2.5-4.9); Thyroid Stimulating Hormone 1.69 uIU/mL (0.358-3.740)
[2024-05-21 08:40] VITALS: BP 117/57; TEMP 97.7
[2024-05-21] MEDS: TAMSULOSIN 0.4 MG SR CAP PO SCH (08:49)
[2024-05-21] MEDS: MAGNESIUM SULFATE 1 gm IVPB 1 GM/100 ML BAG IV ONE (08:49)
--- NOTE | 2024-05-21 12:14 | P.DS ---
Admission Date: 05/20/24 Discharge Date: 05/21/24 Reason for Admission: Dehydration, hypotension, weakness Brief History of Present Illness: Diagnosis Significant Hypotension Syncopal episode Hyponatremia Weakness Abdominal pain with constipation Diabetes mellitusNIDDM HPI 05/20/2022 Mattie Cortes is a 64-year-old female with past medical history of diabetes mellitusNIDDM, uterine cancer who presents to the ED with chief complaint of lower abdominal pain, constipation, and syncopal episodes. She reports coming to the emergency room yesterday and being discharged with instructions to take MiraLAX, which she is afraid of taking because she feels like it will cause her to "pass out". On arrival blood pressure was significantly low with SBP 64, abdomen nontender/nondistended, Sodium 129, UA negative. Initial vitals BP 110 / 88; Pulse 82; Resp 17 S; Temp 97.7(O); Pulse Ox 100% on R/A CT abdomen pelvis with contrast reports "No acute or significant abnormalities seen in the chest, abdomen or pelvis. Moderate retained stool throughout the colon." Chest x-ray reports "No acute intrathoracic abnormalities." Mattie will be admitted to hospitalist service for further evaluation and treatment. Hospital Course: Mattie Cortes is a pleasant 64-year-old female with a past medical history significant for diabetes mellitusNIDDM, and uterine cancer who was admitted to the [facility] on 05/20/24 for Weakness and hypotension. Mattie Cortes presented with complaints of weakness and constipation. On arrival, it was noted that she had signification hypotension. She reported not having a bowel movement which caused lower abdominal pain. She had visited the ED the day prior to her admission and was prescribed miralax which she was not interested in using because it is "chemical". CT abdomen pelvis with contrast reports "No acute or significant abnormalities seen in the chest, abdomen or pelvis. Moderate retained stool throughout the colon." An enema was given and was successful helping her to feel better this morning. She reports her hypotension is chronic. She was educated that her hypotension could be contributing to her weakness. She is tolerating PO diet, Sodium WNL, and hemodynamically stable for discharge. On 05/21/24, Mattie was seen on morning rounds and deemed medically stable for discharge. Mattie was discharged with instructions to schedule follow-up appointments with PCP. Physical Exam General: Alert and Oriented x3, NAD HEENT: Atraumatic, Normocephalic, PERRLA Neck: Supple, 2+ carotid pulse no bruit Respiratory: Clear to auscultation bilaterally, Normal air movement Cardiovascular: No edema, NSR, Normal S1 S2 Capillary refill: <2 Seconds Gastrointestinal: bowel sounds present, Soft and benign on palpation Musculoskeletal: No clubbing Integumentary: No rashes Neurological: Normal speech, Normal tone <Agnes Kuhn - Last Filed: 05/21/24 19:33> Admission Date: 05/20/24 Discharge Date: 05/21/24 Hospital Course: Patient seen and examined. Plan of care discussed with Ms. Kuhn. She denies any complain. Blood pressure is borderline low, sometimes hypotensive. Patient states this is chronic for her and not new. Orthostatic vitals are negative. Cortisol and thyroid levels within normal She is currently asymptomatic, current blood pressure is 117/57. She is discharged to follow-up with her PCP. <aldair rowe - Last Filed: 05/25/24 16:59> Disposition: ROUTINE DISCHARGE Discharge Condition: GOOD Vital Signs/Physical Exam: Temp Pulse Resp BP Pulse Ox 97.7 F 76 14 117/57 L 100 05/21/24 08:00 05/21/24 08:00 05/21/24 08:00 05/21/24 08:00 05/21/24 08:00 Laboratory Data at Discharge: WBC 4.80 thou/uL (4.3-10.9) 05/21/24 05:32 Hgb 11.7 g/dL (12.0-15.0) L D 05/21/24 05:32 Hct 33.6 % (36.0-45.0) L 05/21/24 05:32 Plt Count 227 thou/uL (152-406) 05/21/24 05:32 PT 11.5 SECONDS (9.4-12.5) 05/20/24 08:07 INR 1.03 05/20/24 08:07 Sodium 138 mEq/L (136-145) D 05/21/24 05:32 Potassium 4.0 mEq/L (3.5-5.1) 05/21/24 05:32 BUN 9 mg/dL (7-18) 05/21/24 05:32 Creatinine 0.51 mg/dL (0.55-1.02) L 05/21/24 05:32 Glucose 77 mg/dL (74-106) 05/21/24 05:32 Phosphorus 3.1 mg/dL (2.5-4.9) 05/21/24 05:32 Magnesium 1.8 mg/dL (1.6-2.4) 05/21/24 05:32 Total Bilirubin 0.5 mg/dL (0.2-1.0) 05/20/24 06:30 AST 27 U/L (15-37) 05/20/24 06:30 ALT 25 U/L (13-56) 05/20/24 06:30 Alkaline Phosphatase 81 U/L (45-117) 05/20/24 06:30 Triglycerides 84 mg/dL (<150) 05/21/24 05:32 Cholesterol 175 mg/dL (<200) 05/21/24 05:32 HDL Cholesterol 60 mg/dL (40-60) 05/21/24 05:32 Cholesterol/HDL Ratio 2.92 05/21/24 05:32 <Agnes Kuhn - Last Filed: 05/21/24 19:33> Vital Signs/Physical Exam: Temp Pulse Resp BP Pulse Ox 97.7 F 76 14 117/57 L 100 05/21/24 08:00 05/21/24 08:00 05/21/24 08:00 05/21/24 08:00 05/21/24 08:00 Laboratory Data at Discharge: WBC 4.80 thou/uL (4.3-10.9) 05/21/24 05:32 Hgb 11.7 g/dL (12.0-15.0) L D 05/21/24 05:32 Hct 33.6 % (36.0-45.0) L 05/21/24 05:32 Plt Count 227 thou/uL (152-406) 05/21/24 05:32 PT 11.5 SECONDS (9.4-12.5) 05/20/24 08:07 INR 1.03 05/20/24 08:07 Sodium 138 mEq/L (136-145) D 05/21/24 05:32 Potassium 4.0 mEq/L (3.5-5.1) 05/21/24 05:32 BUN 9 mg/dL (7-18) 05/21/24 05:32 Creatinine 0.51 mg/dL (0.55-1.02) L 05/21/24 05:32 Glucose 77 mg/dL (74-106) 05/21/24 05:32 Phosphorus 3.1 mg/dL (2.5-4.9) 05/21/24 05:32 Magnesium 1.8 mg/dL (1.6-2.4) 05/21/24 05:32 Total Bilirubin 0.5 mg/dL (0.2-1.0) 05/20/24 06:30 AST 27 U/L (15-37) 05/20/24 06:30 ALT 25 U/L (13-56) 05/20/24 06:30 Alkaline Phosphatase 81 U/L (45-117) 05/20/24 06:30 Triglycerides 84 mg/dL (<150) 05/21/24 05:32 Cholesterol 175 mg/dL (<200) 05/21/24 05:32 HDL Cholesterol 60 mg/dL (40-60) 05/21/24 05:32 Cholesterol/HDL Ratio 2.92 05/21/24 05:32 <aldair rowe - Last Filed: 05/25/24 16:59> Diet: Regular Activity: Fall precautions <Agnes Kuhn - Last Filed: 05/21/24 19:33> <aldair rowe - Last Filed: 05/25/24 16:59> Home Medications: Tamsulosin [Flomax*] 0.4 mg PO DAILY 05/20/24 Physician Discharge Instructions: 1. Please call and schedule a follow-up appointment with your PCP in 3-5 days - Please follow-up with your PCP for medication refills/adjustments -Concerns with your low blood pressure 2. Please call and schedule a follow-up appointment with Gastroenterology in 1-2 weeks with concerns of continual constipation 3. Continue regular diet 4. activity restrictions, fall precautions, walk carefully 5. Return to the ED if symptoms worsen Followup: NONE,NONE [Primary Care Provider] -
--- NOTE | 2024-05-21 13:00 | EKG ---
Test Date: 2024-05-20 Test Time: 06:29:11 Grounds Cleaner: FERNANDO MEASUREMENT RESULTS: Intervals: Rate: 64 WA: 162 QRSD: 96 QT: 442 QTc: 455 [place]: P: 77 WA: 162 QRS: 70 T: 77 INTERPRETIVE STATEMENTS: Normal sinus rhythm Normal ECG Compared to ECG 04/10/2006 06:55:51 Prolonged QT interval no longer present Electronically Signed On 05-21-24 12:55:27 CDT by Sarabjit Quesada
== END 2024-05-21 11:58 | disposition home or self-care (01) ==
LOC: ER 06:19 → ERHOLD 08:57 → 2ND 16:40
PROVIDERS: ADMIT Internal Medicine; ATTEND Internal Medicine
DX: I95.9 Hypotension, unspecified (principal); R55 Syncope and collapse; E86.0 Dehydration; R53.1 Weakness; E11.9 Type 2 diabetes mellitus without complications; K59.00 Constipation, unspecified; E87.1 Hypo-osmolality and hyponatremia; R10.9 Unspecified abdominal pain; Z85.42 Personal history of malignant neoplasm of other parts of uterus
CPT/HCPCS: 93005; 87040 ×2; 85025 ×2; 80048 ×2; 36415; 83735 ×2; 84100; 85610; 80061; 82947 ×3; 80076; 83605; 84443; 81003; 84484 ×4; 84439; 82533; 83880; 71250; 74176; 71045; J3475; J2405; J7030 ×4; J0692; 96361; 96365; 96375; 99285; G0378

== ENCOUNTER 2024-07-01 18:09 | Emergency (ER) | payer OTHER ==
--- OUTSIDE RECORDS SUMMARY | 2024-07-01 18:15 | XMS REPORT | Continuity of Care Document ---
Author Name Unknown Address [address] [facility] [address] [place] [address] [facility] thconnect Address [address] [facility] [address] [place] [address] Care Team Providers Care Sueding Machine Tender Name Role Phone PRIETO MCKINLEY Attending Clinician Unavailable REY JEFFERSON Attending Clinician Unavailable MELY CAMPA Attending Clinician Unavailable LAB90 Attending Clinician Unavailable RICK ROSSI Attending Clinician Unavailable MARIA ELENA SENA Attending Clinician Unavailable IVETTE ALBRIGHT Attending Clinician Unavailable Trish Meek Attending Clinician Unavailable LAB08 Attending Clinician Unavailable SAUNDRA GARCIA Attending Clinician Unavailable [email or web address] Attending Clinician Unavaila Sharlene Sue I Admitting Clinician Unavailable [email or web address] Admitting Clinician Unavaila ble Payers Payer Name Policy Type Policy Number Effective Date Expirati on Date Source [facility] [facility] [id number] [facility] [place] [id number] 2024 00:00:00 Problems Condition Name Condition Details Condition Category Status Onset Date Resolution Date Last Treatment Date Treating Clinician Comments Source PVD (periphera l vascular disease) PVD (periphera l vascular disease) Disease Active 2023-08 0-15 00:00: 00 Jenelle Curtis - Externa zeus Well adult exam Well adult exam Disease Active 2023-08 0-14 00:00: 00 Jenelle Curtis - Externa l Hyperlipid emia Hyperlipid emia Disease Active Jenelle Mcqueengordyady - Externa l History of cervical cancer History of cervical cancer Disease Active Jenelle Claireold - Externa l Allergies, Adverse Reactions, Alerts Allergy Name Allergy Type Status Severity Reaction(s) Onset Date Inactive Date Treating Clinician Comments Source No Known Allergie s DA Active U 2023-08 00:00: 00 [facility] [place], operated [facility] Social History Social Habit Start Date Stop Date Quantity Comments Source ASSERTION Not Jenelle Curtis - External History of Occupation Jenelle Curtis - External Sexual orientation Shanell mills Semaddie - External Alcoholic beverage intake 2024-06-09 00:00:00 2024-06-09 00:00:00 Ex-drinker (finding) Jenelle Curtis - External Tobacco use and exposure 2024-04-23 00:00:00 2024-04-23 00:00:00 Smokeless tobacco non-user Jenelle maddie - External History of Social function 2024-04-23 00:00:00 2024-04-23 00:00:00 Jenelle gordyady - External Education 2024-04-23 00:00:00 2024-04-23 00:00:00 16 Jenelleosmar Curtis - External Sex 2024-04-11 16:35:56 2024-04-11 16:35:56 Female (finding) Jenelleosmar Curtis - External Sex assigned at 1960 00:00:00 1960 00:00:00 Jenelle Segordyady - External Smoking Status Start Date Stop Date Source Never smoked tobacco Jenelle gordyady - External Medications Ordered Medication Name Filled Medication Name Start Date Stop Date Current Medication? Ordering Clinician Indication Dosage Frequency Signature (SIG) Comments Components Source traMADol-Ac etaminophen 37.5-325 MG oral Tablet 05-19 00:00: 00 Yes [id number] 3D every 8 hours as needed for pain. Jenelle Zavala Externa l Tramadol HCl (ULTRAM) 50 MG oral Tablet 05-19 00:00: 00 06-02 00:00 :00 No 50mg [id number] 3D Take 1 tablet (50 mg total) by mouth every 8 hours as needed. Jenelle Curtis - Externa zeus Tamsulosin HCl 0.4 MG oral Capsule 05-10 00:00: 00 06-02 00:00 :00 No .4mg 1 capsule (0.4 mg total). Jenelle schulz Fluconazole 150 MG oral Tablet 04-23 15:22: 15 Yes [id number] 150mg Take 1 tablet (150 mg total) by mouth once for 1 dose. Jenelle Curtis - Anuel schulz Cefdinir 300 MG oral Capsule 04-23 00:00: 00 06-02 00:00 :00 No [id number] 300mg Q.5D Take 1 capsule (300 mg total) by mouth 2 times daily. Jenelle Kumara zeus Immunizations Ordered Immunization Name Filled Immunization Name Date Status Comments Source pneumococcal, unspecified formulation Unknown Completed Jenelle Curtis - External Influenza vaccine, quadrivalent, adjuvanted, 65+ Unknown Completed Jenelle delarosa - External pneumococcal, unspecified formulation Unknown Completed Jenelle Curtis - External Influenza vaccine, quadrivalent, adjuvanted, 65+ Unknown Completed Jenelle delarosa - External Vital Signs Vital Name Observation Time Observation Value Comments S ource Systolic blood pressure 2024-06-09 15:59:00 100 mm[Hg] Jenelle delarosa - External Diastolic blood pressure 2024-06-09 15:59:00 66 mm[Hg] Jenelle delarosa - External Heart rate 2024-06-09 15:59:00 71 /min Florina Curtis - External Body temperature 2024-06-09 15:59:00 36.22 Shruti Jenelle Curtis - External Respiratory rate 2024-06-09 15:59:00 18 /min Jenelle Curtis - External Body height 2024-06-09 15:59:00 162.6 cm Crystal Curtis - External Body weight 2024-06-09 15:59:00 61.236 kg Crystal peñaloza Seybady - External BMI 2024-06-09 15:59:00 23.17 kg/m2 Crystal Curtis - External Oxygen saturation in Arterial blood by Pulse oximetry 2024-06-09 15:59:00 97 /min Jenelle Claireo ld - External Systolic blood pressure 2024-06-02 20:22:00 115 mm[Hg] Jenelle Seybo ld - External Diastolic blood pressure 2024-06-02 20:22:00 73 mm[Hg] Jenelle Seybo ld - External Heart rate 2024-06-02 20:22:00 74 /min Kelse y Seybold - External Body temperature 2024-06-02 20:22:00 37.39 Shruti Jenelle Seybold - External Respiratory rate 2024-06-02 20:22:00 14 /min Jenelle Seybold - External Body height 2024-06-02 20:22:00 162.6 cm Crystal ey Seybold - External Body weight 2024-06-02 20:22:00 61.236 kg Crystal ey Seybold - External BMI 2024-06-02 20:22:00 23.17 kg/m2 Crystal ey Seybold - External Oxygen saturation in Arterial blood by Pulse oximetry 2024-06-02 20:22:00 99 /min Jenelle Seybo ld - External Systolic blood pressure 2024-05-23 15:56:00 119 mm[Hg] Jenelle Seybo ld - External Diastolic blood pressure 2024-05-23 15:56:00 75 mm[Hg] Jenelle Seybo ld - External Heart rate 2024-05-23 15:56:00 78 /min Kelse y Seybold - External Respiratory rate 2024-05-23 15:56:00 17 /min Jenelle Seybold - External Body height 2024-05-23 15:56:00 162.6 cm Crystal ey Seybold - External Body weight 2024-05-23 15:56:00 63.957 kg Crystal ey Seybold - External BMI 2024-05-23 15:56:00 24.20 kg/m2 Crystal ey Seybold - External Systolic blood pressure 2024-04-23 20:06:00 134 mm[Hg] Jenelle Seybo ld - External Diastolic blood pressure 2024-04-23 20:06:00 81 mm[Hg] Jenelle Seybo ld - External Heart rate 2024-04-23 20:06:00 78 /min Kelse y Seybold - External Respiratory rate 2024-04-23 20:06:00 16 /min Jenelle Seybold - External Body height 2024-04-23 20:06:00 162.6 cm Crystal peñaloza Segordyold - External Body weight 2024-04-23 20:06:00 65.772 kg Crystal peñaloza Seybold - External BMI 2024-04-23 20:06:00 24.89 kg/m2 Crystal peñaloza Segordyold - External Oxygen saturation in Arterial blood by Pulse oximetry 2024-04-23 20:06:00 100 /min Jenelle Sedarius ld - External Encounters Start Date/Time End Date/Time Encounter Type Admission Type Attending [facility] Care Department Encounter ID Source 2024-07-18 08:30:00 2024-07-18 08:30:00 Outpatient JENELLE GIL [id number] Jenelle Aletheaady 2024-07-11 11:00:00 2024-07-11 11:00:00 Outpatient [facility]CKIN[facility] [id number] [facility] 2024-07-01 00:00:00 2024-07-01 00:00:00 Outpatient REY JEFFERSON [id number] [facility] 2024-06-30 00:00:00 2024-06-30 00:00:00 Outpatient MELY CAMPA [id number] [facility] 2024-06-27 10:55:00 2024-06-27 10:55:00 Outpatient LAB90 JENELLE GIL [id number] Jenelle ybady 2024-06-27 10:30:00 2024-06-27 10:30:00 Outpatient RICK ROSSI [id number] [facility] 2024-06-27 00:00:00 2024-06-27 00:00:00 Outpatient MELY CAMPA [id number] Jenelle ybady 2024-06-25 08:30:00 2024-06-25 08:30:00 Outpatient JENELLE GIL [id number] Jenelle ybady 2024-06-25 00:00:00 2024-06-25 00:00:00 Outpatient MARIA ELENA SENA [id number] Jenelle Mcqueenybady 2024-06-09 11:00:00 2024-06-09 11:00:00 Outpatient PRIETO MCKINLEY JENELLE GIL [id number] Jenelle Mcqueenybady 2024-06-05 00:00:00 2024-06-05 00:00:00 Outpatient PREZASMELY JENELLE GIL [id number] Jenelle Mcqueenybady 2024-06-02 15:30:00 2024-06-02 15:30:00 Outpatient PREZAS, MELY GIL [id number] Jenelle Mcqueenybady 2024-06-02 00:00:00 2024-06-02 00:00:00 Outpatient PREZALuciano MELY GIL [id number] Jenelle Mcqueenybady 2024-05-28 00:00:00 2024-05-28 00:00:00 Outpatient IVETTE ALBRIGHT [id number] Jenelle Curtis 2024-05-27 10:38:00 2024-05-27 15:50:00 Emergency EM Trish Meek [facility] [id number] [address] [place] [address] 2024-05-23 11:30:00 2024-05-23 11:30:00 Outpatient LAB08 JENELLE GIL [id number] Jenelle Curtis 2024-05-23 11:00:00 2024-05-23 11:00:00 Outpatient IVETTE ALBRIGHT [id number] Jenelle ybady 2024-05-23 00:00:00 2024-05-23 00:00:00 Outpatient SRAVANLuciano MELY JENELLE GIL [id number] Jenelle Mcqueenybady 2024-05-22 10:30:00 2024-05-22 10:30:00 Outpatient LAB90 JENELLE GIL [id number] Jenelle Seybady 2024-05-21 10:00:00 2024-05-21 10:00:00 Outpatient IVETTE ALBRIGHT [id number] Jenelle ybady 2024-05-21 00:00:00 2024-05-21 00:00:00 Outpatient IVETTE ALBRIGHT [id number] [facility] 2024-05-20 10:30:00 2024-05-20 10:30:00 Outpatient IVETTE ALBRIGHT JENELLE [id number] [facility] 2024-05-02 14:35:00 2024-05-02 14:35:00 Outpatient LAB90 JENELLE GIL [id number] [facility] 2024-05-02 00:00:00 2024-05-02 00:00:00 Outpatient MELY CAMPAOSMAR GIL [id number] [facility] 2024-04-25 00:00:00 2024-04-25 00:00:00 Outpatient MELY CAMPA JENELLE GIL [id number] [facility] 2024-04-23 16:15:00 2024-04-23 16:15:00 Outpatient LAB90 JENELLE GIL [id number] [facility] 2024-04-23 15:00:00 2024-04-23 15:00:00 Outpatient MELY CAMPA JENELLE GIL [id number] [facility] 2024-04-17 08:30:00 2024-04-17 08:30:00 Outpatient SAUNDRA GARCIA JENELLE GIL [id number] [facility] 2023-06-20 00:00:00 2023-06-20 00:00:00 Outpatient [email or web address] PRIV PRIV [id number] [facility] Results Test Description Test Time Test Comments Results Result Co mments Source UA RFLX MICR CULT IF [id number] 11:20:00* Test Item Value Reference Range Interpretation Comme nts UA COLOR (test code = COLU) Yellow YELLOW UA APPEARANCE (test code = APPU) CLEAR CLEAR UA GLUCOSE DIPSTICK (test code = DGLUU) Negative mg/dL NEGATIVE UA BILIRUBIN DIPSTICK (test code = BILU) Negative NEGATIVE UA KETONE DIPSTICK (test code = KETU) Negative NEGATIVE UA SPECIFIC GRAVITY (test code = SGU) 1.010 1.005-1.015 UA BLOOD DIPSTICK (test code = ASMITA) Negative NEGATIVE UA PH DIPSTICK (test code = KACY) 6.5 5.0-7.0 UA PROTEIN DIPSTICK (test code = PROU) Negative mg/dL NEGATIVE UA UROBILINIOGEN DIPSTICK (test code = URO) 0.2 EU/dL See_Comment [Automated message] The system which generated this result transmitted reference range: <2.0 EU/dL. The reference range was not used to interpret this result as normal/abnormal. UA NITRITE DIPSTICK (test code = REGI) Negative NEGATIVE UA LEUKOCYTE ESTERASE DIPSTICK (test code = LEUU) Negative NEGATIVE Indication for culture: RiskForSepsis-no oth srcSOURCE OF URINE: CLEAN CATCHCBC W/AUTO [id number] 11:15:00* Test Item Value Reference Range Interpretation Comme nts WHITE BLOOD CELL (test code = WBC) 6.2 K/mm3 3.5-11.0 N RED BLOOD CELL (test code = RBC) 4.26 M/mm3 4.70-6.10 L HEMOGLOBIN (test code = HGB) 13.7 G/DL 10.4-14.9 N HEMATOCRIT (test code = HCT) 39.1 % 31.5-44.1 N MEAN CELL VOLUME (test code = MCV) 91.8 Fl 84.5-98.6 N MEAN CELL HGB (test code = MCH) 32.2 pg 27.0-34.2 N MEAN CELL HGB CONCETRATION (test code = MCHC) 35.0 G/DL 31.5-34.0 H RED CELL DISTRIBUTION WIDTH (test code = RDW) 11.6 SD 11.5-14.5 N PLATELET COUNT (test code = PLT) 273 K/mm3 150-450 N MEAN PLATELET VOLUME (test c ode = MPV) 9.20 fL 7.0-10.5 N NEUTROPHIL % (test code = NT%) 75.8 % 40-76 N IMMATURE GRANULOCYTE % (test code = IG%) 0.8 % 0.0-5.0 N LYMPHOCYTE % (test code = LY%) 15.3 % 20.5-51.1 L MONOCYTE % (test code = MO%) 7.0 % 1.7-9.3 N EOSINOPHIL % (test code = EO%) 0.3 % 0.0-6.0 N BASOPHIL % (test code = BA%) 0.8 % 0.0-2.0 N NUCLEATED RBC % (test code = NRBC%) 0.0 /100WBC% 0.0-1.0 N NEUTROPHIL # (test code = NT#) 4.7 K/mm3 1.8-7.6 N IMMATURE GRANULOCYTE # (test code = IG#) 0.05 x10 3/uL 0.00-0.03 H LYMPHOCYTE # (test code = LY#) 0.9 K/mm3 0.6-3.2 N MONOCYTE # (test code = MO#) 0.4 K/mm3 0.3-1.1 N EOSINOPHIL # (test code = EO#) 0.0 K/mm3 0.0-0.4 N BASOPHIL # (test code = BA#) 0.1 K/mm3 0.0-0.1 N NUCLEATED RBC # (test code = NRBC#) 0.0 K/mm3 0.0-0.1 N Notes Date/Time Note Provider Source 2024-06-09 10:58:36 Chief Complaint Patient presents with Urinary Hesitancy Start and Stop when Urinating Eric Garrett CMA II [facility] 2024-05-27 15:28:00 [facility] ([facility]) EMERGENCY PROVIDER REPORT REPORT#:[id number] REPORT STATUS: Signed DATE:05/27/24 TIME:1528 PATIENT: SASKIA MUELLER UNIT #: [id number] ROOM/BED: : 59 AGE: 64 SEX: F PCP PHYS: Sharlene Carballo I [employer] AUTHOR: Myrtle Willis APRNNP REP SRV REP SRV TM: 1528 * ALL edits or amendments must be made on the electronic/computer document * Myrtle Willis 05/27/24 1528: HPI-Hip/Pelvis Prob/Inj Free Text HPI Notes Free Text HPI Notes 64 year old female with no significant PMH, PSH hysterectomy, choleycystectomy reported presents today for pelvic pain that has been worsening over the past 2 months. She states she saw her urogynocologist on Sunday and had a pap smear, pending results, and UA which she states was negative for UTI. She states this occurred after cleaning up the yard after [place]rican Alanis in February and has progressively been worsening. She is visibly uncomfortable in triage and states that her pain is in the genital area, worse with pressure, and walking or trying to lift heavier objects. General Confirmed Patient Yes Patient Type New patient Initial Greet Date/Time 05/27/24 1044 Presentation Chief Complaint Pelvic pain R, Pelvic pain L Hx Obtained From Patient Onset Occurred 2 months ago, progressively worsening Symptom Duration Chronic Progression since Onset Gradually worsening Pain/Sev: Current Pain level 5 out of 10 Review of Systems ROS Statements All systems rev neg except as marked. Additional Review of Systems Female Reports: Pelvic pain. Past Medical History - Adult Stated Complaint PELVIC PAIN,2 MO Allergies Coded Allergies: No Known Allergies (05/27/24) Pt reports no significant: Past medical history Past Surgical History: Reports: Cholecystectomy, Hysterectomy. Additional Surgical History R knee R shoulder Physical Exam Vital Signs Vital Signs First Documented: Result Date Time Pulse Ox 100 05/27 1040 B/P 111/72 05/27 1040 B/P Mean 85 05/27 1040 O2 Delivery Room air 05/27 1040 Temp 36.5 05/27 1040 Pulse 98 10 1040 Resp 17 05/27 1040 Last Documented: Result Date Time Pulse Ox 100 05/27 1547 B/P 131/63 05/27 1547 B/P Mean 85 05/27 1547 O2 Delivery Room air 05/27 1547 Temp 36.7 05/27 1547 Pulse 72 05/27 1547 Resp 18 05/27 1547 Review of Vital Signs Reviewed Focused PE General/Const General/Const Awake, Alert, No acute distress, Cooperative, Not toxic appearing Resp/Chest Respiratory/Chest Breath sounds NL, Breath sounds = bilat, No respiratory distress, No rales, No rhonchi, No wheezing, No retractions, No stridor Cardiovascular Cardiovascular Heart rate NL, Regular rhythm, Heart sounds NL, No gallop, No murmurs, No rubs, Cap refill not delayed Abdomen/GI Abdomen/GI Soft, Non-tender, McBurney's non-tender, No guarding, No rebound, BS normoactive, No distention, No hernia, No palpable mass, No pulsatile mass MS Back Back Full range of motion, Non-tender, No CVA tenderness MS Lower Extrem Text/Dict Notes steady gait, no edema, full ROM Interpretation Diagnostics Lab Results Interpretation Results Laboratory Tests 05/27/24 1104: [Embedded Image Not Available] Laboratory Tests: 05/27 05/27 1113 1104 Chemistry Sodium (136 - 145 mmol/L) 138 Potassium (3.4 - 5.0 mmol/L) 4.4 Chloride (98 - 107 mmol/L) 102 Carbon Dioxide (21 - 32 mmol/L) 30 Anion Gap (4 - 15 GAP calc) 6 BUN (7 - 18 MG/DL) 10 Creatinine (0.6 - 1.0 MG/DL) 0.7 Glomerular Filtr Rate (>60 estGFR) >=60 max estimate Glucose (70 - 110 MG/DL) 131 H Calcium (8.5 - 10.1 MG/DL) 9.6 Hematology WBC (3.5 - 11.0 K/mm3) 6.2 RBC (4.70 - 6.10 M/mm3) 4.26 L Hgb (10.4 - 14.9 G/DL) 13.7 Hct (31.5 - 44.1 %) 39.1 MCV (84.5 - 98.6 Fl) 91.8 MCH (27.0 - 34.2 pg) 32.2 MCHC (31.5 - 34.0 G/DL) 35.0 H RDW (11.5 - 14.5 SD) 11.6 Plt Count (150 - 450 K/mm3) 273 MPV (7.0 - 10.5 fL) 9.20 Neut % (Auto) (40 - 76 %) 75.8 Lymph % (Auto) (20.5 - 51.1 %) 15.3 L [place] % (Auto) (1.7 - 9.3 %) 7.0 Eos % (Auto) (0.0 - 6.0 %) 0.3 Baso % (Auto) (0.0 - 2.0 %) 0.8 Neut # (Auto) (1.8 - 7.6 K/mm3) 4.7 Lymph # (Auto) (0.6 - 3.2 K/mm3) 0.9 [place] # (Auto) (0.3 - 1.1 K/mm3) 0.4 Eos # (Auto) (0.0 - 0.4 K/mm3) 0.0 Baso # (Auto) (0.0 - 0.1 K/mm3) 0.1 Abs Immat Gran (auto) (0.00 - 0.03 x10 3/uL) 0.05 H Immature Gran % (0.0 - 5.0 %) 0.8 Nucleated RBC % (0.0 - 1.0 /100WBC%) 0.0 Urines Urine Color (YELLOW) Yellow Urine Appearance (CLEAR) CLEAR Urine pH (5.0 - 7.0) 6.5 Ur Specific [place] (1.005 - 1.015) 1.010 Urine Protein (NEGATIVE mg/dL) Negative Urine Glucose (UA) (NEGATIVE mg/dL) Negative Urine Ketones (NEGATIVE) Negative Urine Blood (NEGATIVE) Negative Urine Nitrite (NEGATIVE) Negative Urine Bilirubin (NEGATIVE) Negative Urine Urobilinogen (<2.0 EU/dL EU/dL) 0.2 Ur Leukocyte Esterase (NEGATIVE) Negative Recent Impressions: ULTRASOUND - DUP AB/PEL/SC COMP 05/27 114 Report Impression - Status: SIGNED Entered: 05/27/2024 1254 IMPRESSION: 1. Hysterectomy. 2. Low-level echoes in the bladder lumen may be artifactual versus debris, correlate with urinalysis for cystitis. Impression By: Polo Montiel ULTRASOUND - US PELVIC COMPLETE 05/27 1140 Report Impression - Status: SIGNED Entered: 05/27/2024 1254 IMPRESSION: 1. Hysterectomy. 2. Low-level echoes in the bladder lumen may be artifactual versus debris, correlate with urinalysis for cystitis. Impression By: Polo Montiel CAT SCAN - CT ABD PELVIS W/CONT 05/27 1437 Report Impression - Status: SIGNED Entered: 05/27/2024 1442 IMPRESSION: No acute intra-abdominal/pelvic abnormality. COMMENTS: Consistent with the [employer]'s Incidental Findings Committee white paper (J Am Jordy Radiol 2018): Any incidental renal lesion less than 1 cm or classified as too small to characterize, or any incidental cystic renal lesion characterized as simple-appearing, is likely benign. No follow-up imaging is recommended for these lesions per consensus recommendations based on imaging criteria. Impression By: Adina - Oleksandr Glynn M.D. Lab Imaging Statement Laboratory radiographic studies reviewed and considered in the medical decision-making. Re-Evaluation MDM Free Text MDM Notes Additional Text Subjective: 64 year old female with no significant PMH, PSH hysterectomy, choleycystectomy reported presents today for pelvic pain that has been worsening over the past 2 months. She states she saw her urogynocologist on Sunday and had a pap smear, pending results, and UA which she states was negative for UTI. She states this occurred after cleaning up the yard after [place] in February and has progressively been worsening. She is visibly uncomfortable in triage and states that her pain is in the genital area, worse with pressure, and walking or trying to lift heavier objects. On examination patient is alert and oriented for age, well-appearing, well- hydrated and without distress. Differential Diagnosis: bladder prolapse, UTI, pelvic mass, pelvic abcess Ruled out: No acute findings with pelvic US or CT abdomen/pelvis which Ruled out bladder prolapse, pelvic mass or abcess. Ruled out UTI or infectious process with laboratory findings as well. The patient's condition is stable and appropriate for discharge. The patient will pursue further outpatient evaluation with her established Urogynocologist. The patient and/or caregivers have expressed a clear and thorough understanding and agree to follow up as instructed. Parts of the note were created using iSnap speech recognition dictation software. All attempts were made to correct any errors at the time of dictation, however there may be some errors present in the electrician second that were inadvertently overlooked during the dictation. Re-Evaluation/Progress Re-Evaluation/Progress Text/Dict Note 1510: Patient states pain has somewhat remained improved, reviewed laboratory and imaging results with patient and her . Reviewed follow up with her established outpatient provider. Time of Re-Eval 1300 Re-Eval Status Improved Pain Re-Evaluation 10/27 ED Course Medication(s) Ordered Medication(s) Ordered: Central Nervous System Agents Sig/Rancho Start time Last Medication Dose Route Stop Time Status Admin Hydrocodone Bitart/ 1 TAB X1ED STA 05/27 1105 DC 05/27 Acetaminophen PO 05/27 1106 1218 Diagnostic Agents Sig/Rancho Start time Last Medication Dose Route Stop Time Status Admin Iopamidol 0 .STK-MED ONE 05/27 1420 DC .ROUTE Gastrointestinal Drugs Sig/Rancho Start time Last Medication Dose Route Stop Time Status Admin Ondansetron HCl 4 MG X1ED STA 05/27 1214 DC 05/27 IV 05/27 1215 1218 Patient Discharge Departure Vital Signs/Condition Vital Signs First Documented: Result Date Time Pulse Ox 100 05/27 1040 B/P 111/72 05/27 1040 B/P Mean 85 05/27 1040 O2 Delivery Room air 05/27 1040 Temp 36.5 05/27 1040 Pulse 98 10 1040 Resp 17 05/27 1040 Last Documented: Result Date Time Pulse Ox 100 05/27 1547 B/P 131/63 05/27 1547 B/P Mean 85 05/27 1547 O2 Delivery Room air 05/27 1547 Temp 36.7 05/27 1547 Pulse 72 05/27 1547 Resp 18 05/27 1547 All vital signs available at the time of this entry have been reviewed. Condition Stable, Improved Clinical Impression Clinical Impression Primary Impression: Vaginal pain Disposition Decision Discharge )( Discharged to Home Yes )( Time 1529 )( Date 05/27/24 Discharge/Care Plan Counseled Regarding Diagnosis, Lab results, Imaging studies, Need for follow-up, When to return to ED Patient Instructions ED Pelvic Pain, Unknown Cause Additional Instructions Thank you for coming to [facility] The care we provided was on an emergency basis. It is not a substitute for regularly scheduled appointments with your primary care provider. For pain you may take [id number] Tylenol 500 to 1000 mg every 6 hours as needed for pain and or ibuprofen 400 to 600 mg every 6-8 hours as needed for pain. Return to the ER if symptoms worsen, including pain not improved with medications, vaginal discharge, abdominal pain, nausea, vomiting, any other concerns. Follow good hand hygiene. Please follow-up with a [facility]ICAL [facility]INE RE[facility]AB[facility]ATION in 2 to 3 days. A list of providers in the local area has been given to you. This is important for follow-up to make sure you are improving. Discharge Note I have spoken with the patient and/or caregivers. I have explained the patient's condition, diagnoses and treatment plan based on the information available to me at this time. I have answered the patient's and/or caregiver's questions and addressed any concerns. The patient and/or caregivers have as good an understanding of the patient's diagnosis, condition and treatment plan as can be expected at this point. The vital signs have been stable. The patient's condition is stable and appropriate for discharge from the emergency department. The patient will pursue further outpatient evaluation with the primary care physician or other designated or consulting physician as outlined in the discharge instructions. The patient and/or caregivers are agreeable to this plan of care and follow-up instructions have been explained in detail. The patient and/or caregivers have received these instructions in written format and have expressed an understanding of the discharge instructions. The patient and/or caregivers are aware that any significant change in condition or worsening of symptoms should prompt an immediate return to this or the closest emergency department or a call to 1. Trish Meek 06/04/24 1227: Patient Discharge Departure Discharge/Care Plan Referrals Provider Referral: Marsha Cooper MD Address: [address] [place] [address] Provider Referral: Woody Coffman MD Address: [address] [place] [address]. [address] [place] [address] Provider Referral: Tony Dye MD Address: [address] [place] [address] Provider Referral: Marvin Treviño MD Address: [address] [place] [address] Provider Referral: Faraz Glynn DO Address: [address] [facility] [place] [address] Provider Referral: Heena Streeter DO Address: [address] [facility] [address] [phone] Provider Referral: Jose Alejandro Price MD Address: [address] [facility] [address] [place] [address] Provider Referral: Yanet Mojica Address: [address] [place] [phone] Provider Referral: Ricardo Jane MD Address: [address] [place] [address] Provider Referral: Aron Shine MD Address: [address] [place] [phone] Provider Referral: Kelechi Santana MD Follow-Up: 2-3 Days Address: [address] [facility] [address] [place] [address] Provider Referral: Mary Davis MD Address: [address] [facility] [place] [phone] Supervising Physician Note MidLv/Doc Saw Pt 1 MidLv/Doc Saw Pt 2 I performed a substantive part of the MDM during the patient's E/M visit. I personally made or approved the documented management plan and acknowledge its risk of complications. Management/test interpretation discussed with Myrtle Eid NP at 1224 at 1229 RPT #: [id number] END OF REPORT [facility] 2024-05-23 11:12:36 Examination chaperoned by RUTHIE Hernandez. Tarsha HENDRICKS [facility] 2024-05-23 10:56:30 Chief Complaint Patient presents with Vaginal Problem New pt was seen in the er for vaginal pressure and constipation 3 days ago , and she also states she is not emptying her bladder fully Sofia Bess MA II T [facility]
[2024-07-01 20:08] LABS: Absolute Eosinophils 0.1 K/uL (0-0.5); Absolute Lymphocytes (CBC) 1.7 K/uL (0.7-4.9); Absolute Monocytes 0.4 K/uL (0.1-1.3); Absolute Neutrophil 2.7 K/uL (1.8-8.0); Basophils % 0.9 % (0-1.3); Eosinophils % 1.5 % (0-4.4); Hematocrit 30.2 % (36.0-45.0); Hemoglobin 10.6 g/dL (12.0-15.0); Lymphocytes % 34.6 % (15.3-44.8); MCH 33.4 pg (27.0-35.0); MCHC 35.2 g/dL (32.0-36.0); MCV 94.9 fL (80-100); MPV 6.9 fL (7.6-11.3); Platelets 284 thou/uL (152-406); RBC Red Blood Cell Count 3.18 M/uL (3.86-4.86); Red Cell Distribution Width 13.9 % (12.1-15.2)
[2024-07-01 20:14] LABS: Specific Gravity 1.005 (1.005-1.030); Sqamous Epithelial None Seen /HPF (None Seen); Urine Bacteria None Seen /HPF (<20); Urine Bilirubin NEGATIVE (Negative); Urine Blood Negative (Negative); Urine Clarity Clear (Clear); Urine Color Colorless (Yellow); Urine Culture Reflex Order NOT NEEDED; Urine Glucose NEGATIVE (Negative); Urine Ketones NEGATIVE (Negative); Urine Microscopic Reflex YN ORDER UMIC; Urine Nitrite NEGATIVE (Negative); Urine Protein NEGATIVE (Negative); Urine RBC <5 /HPF (None Seen); Urine Urobilinogen Normal (Normal); Urine WBC <5 /HPF (<5)
[2024-07-01 20:15] LABS: PT Prothrombin Time 12.5 SECONDS (9.4-12.5); PTT, Activated Partial Thromb 34.4 SECONDS (24.3-36.9); Protime INR 1.12
[2024-07-01 20:29] LABS: ALT/SGPT 31 U/L (13-56); AST/SGOT 19 U/L (15-37); Albumin 3.4 g/dL (3.4-5.0); Albumin/Globulin Ratio 1.1 (1.1-1.8); Alkaline Phosphatase 69 U/L (45-117); Anion Gap 6.9 mEq/L (5.0-15.0); BUN Blood Urea Nitrogen 13 mg/dL (7-18); Bicarbonate 29 mEq/L (21-32); Bilirubin Total 0.5 mg/dL (0.2-1.0); Glomerular Filtration Rate 94 ml/min (=/>90); Glucose Level 96 mg/dL (74-106); Magnesium 2.2 mg/dL (1.6-2.4); Potassium 3.9 mEq/L (3.5-5.1); Protein, Total 6.4 g/dL (6.4-8.2); Sodium Level 140 mEq/L (136-145)
[2024-07-01 20:38] LABS: Bilirubin Direct < 0.2 mg/dL (0-0.2); Bilirubin Indirect, Calculated 0.3 mg/dL (0.2-0.8)
--- NOTE | 2024-07-02 00:19 | EDPHYS ---
Physician Documentation [facility] Name: Mattie Cortes Age: 64 yrs Sex: Female : 1960 Arrival Date: 07/01/2024 Time: 18:09 Bed 6 Private MD: ED Physician Simon Bhatia HPI: 07/02 00:22 This 64 yrs old Female presents to ER via Ambulatory with complaints of Constipation, kb Near Syncope. 00:22 Pt is a 64 year old female who presents for constipation. states she has been having kb issues with constipation for about a year and a half. States she is afraid to strain because she passed out while straining a long time ago and is afraid she will do it again. States she sits and if it doesn't come out easily she will not go. Reports she has had intermittent dizziness over the last month and has had to use 5 enemas to have bowel movements in that time period. Came in tonight because she knows she cannot use enemas all of the time to have a BM. PCP wrote a referral to see GI, but she is still waiting on appt. Denies n/v/d, fever, abd pain. Historical: - Allergies: 07/01 18:54 No Known Allergies; ph - PMHx: 18:54 Diabetes - NIDDM; uterine cancer (Diabetes - NIDDM); ph - PSHx: 18:54 Bladder stretched; Cholecystectomy; Total abdominal hysterectomy; ph - Immunization history:: Adult Immunizations unknown. - Infectious Disease History:: Denies. - Social history:: Smoking status: Patient denies any tobacco usage or history of. ROS: 07/02 00:21 Constitutional: As per HPI kb Exam: 00:21 Constitutional: This is a well developed, well nourished patient who is awake, alert, kb and in no acute distress. Head/Face: Normocephalic, atraumatic. ENT: Moist Mucous membranes Cardiovascular: Regular rate Respiratory: Respirations even and unlabored. No increased work of breathing. Talking in full sentences Abdomen/GI: Soft, non-tender. No distention Back: No spinal tenderness. No costovertebral tenderness. Full range of motion. Skin: Warm, dry with normal turgor. Normal color. MS/ Extremity: Pulses equal, no cyanosis. Neurovascular intact. Full, normal range of motion. Neuro: Awake and alert, GCS 15, oriented to person, place, time, and situation. 00:21 Constitutional: The patient appears anxious, Vital Signs: 07/01 18:50 BP 110 / 63; Pulse 69; Resp 18; Temp 97; Pulse Ox 100% on R/A; ph 21:00 BP 123 / 61; Pulse 63; Resp 14; Temp 97.6; Pulse Ox 100% ; Pain 0/10; bm8 23:23 BP 117 / 61; Pulse 68; Resp 17; Temp 97; Pulse Ox 97% ; Pain 0/10; bm8 07/02 00:21 BP 120 / 71; Pulse 62; Resp 18; Temp 97; Pulse Ox 100% ; Pain 0/10; bm8 21:00 Pain Scale: Adult bm8 23:23 Pain Scale: Adult bm8 07/02 00:21 Pain Scale: Adult bm8 [place] Coma Score: 07/01 21:00 Eye Response: spontaneous(4). Motor Response: obeys commands(6). Verbal Response: bm8 oriented(5). Total: 15. 23:23 Eye Response: spontaneous(4). Motor Response: obeys commands(6). Verbal Response: bm8 oriented(5). Total: 15. 07/02 00:21 Eye Response: spontaneous(4). Motor Response: obeys commands(6). Verbal Response: bm8 oriented(5). Total: 15. MDM: 07/01 18:49 Medical Screening Exam initiated kb 07/02 00:22 Differential diagnosis: constipation, bowel obstruction, anxiety, vagal response. Data kb reviewed: vital signs, nurses notes. Historians other than the Patient: Spouse/Significant Other: spouse. Counseling: I had a detailed discussion with the patient and/or guardian regarding the historical points, exam findings, and any diagnostic results supporting the discharge/admit diagnosis, lab results, radiology results, the need for outpatient follow up, a family practitioner, a websphere message broker developer, to return to the emergency department if symptoms worsen or persist or if there are any questions or concerns that arise at home. 07/01 18:58 Order name: Basic Metabolic Panel; Complete Time: 20:54 kb 07/01 18:58 Order name: CBC with Diff; Complete Time: 20:54 kb 07/01 18:58 Order name: Hepatic Function; Complete Time: 20:54 kb 07/01 18:58 Order name: Magnesium; Complete Time: 20:54 kb 07/01 18:58 Order name: Protime (+inr); Complete Time: 20:54 kb 07/01 18:58 Order name: Ptt, Activated; Complete Time: 20:54 kb 07/01 18:58 Order name: Troponin High Sensitivity; Complete Time: 20:54 kb 07/01 18:58 Order name: Urinalysis w/ reflexes; Complete Time: 20:54 kb 07/01 22:13 Order name: Abdomen EDMS 07/01 18:58 Order name: Cardiac monitoring; Complete Time: 21:04 kb 07/01 18:58 Order name: EKG - Nurse/Tech; Complete Time: 21:04 kb 07/01 18:58 Order name: IV Saline Lock; Complete Time: 20:17 kb 07/01 18:58 Order name: Labs collected and sent; Complete Time: 20:17 kb 07/01 18:58 Order name: NPO; Complete Time: 21:04 kb 07/01 18:58 Order name: O2 Per Protocol; Complete Time: 21:04 kb 07/01 18:58 Order name: O2 Sat Monitoring; Complete Time: 21:04 kb Administered Medications: No medications were administered Disposition Summary: 07/02/24 00:18 Discharge Ordered Notes: Location: Home kb Condition: Stable kb Diagnosis - Constipation kb Followup: kb - With: Emergency Department - When: As needed - Reason: Worsening of condition Followup: kb - With: Private Physician - When: 2 - 3 days - Reason: Recheck today's complaints, Continuance of care, Re-evaluation by your physician Discharge Instructions: - Discharge Summary Sheet kb - Constipation, Adult, [id number] kb Forms: - Medication Reconciliation Form kb - Antibiotic Education kb - Prescription Opioid Use kb - Patient Portal Instructions kb - Leadership Thank You Letter kb Signatures: Dispatcher [employer] Audra Beasley, RONALD-Sapna CARDENAS-Annabelle Gordon RN RN ph Corrections: (The following items were deleted from the chart) 07/01 18:59 18:59 BASIC METABOLIC PANEL+C.LAB.BRZ ordered. EDMS EDMS 18:59 18:59 CBC+H.LAB.BRZ ordered. EDMS EDMS 18:59 18:59 HEPATIC FUNCTION+C.LAB.BRZ ordered. EDMS EDMS 18:59 18:59 MAGNESIUM+C.LAB.BRZ ordered. EDMS EDMS 18:59 18:59 PROTIME (+INR)+COAG.LAB.BRZ ordered. EDMS EDMS 18:59 18:59 PTT, ACTIVATED+COAG.LAB.BRZ ordered. EDMS EDMS 18:59 18:59 Troponin High Sensitivity+C.LAB.BRZ ordered. EDMS EDMS 18:59 18:59 Urinalysis+U.LAB.BRZ ordered. EDMS EDMS 22:14 19:00 Abdomen Pelvis W Con+CT.RAD.BRZ ordered. EDMS EDMS
--- NOTE | 2024-07-02 00:19 | ER ---
Nurse's Notes [facility] Name: Mattie Cortes Age: 64 yrs Sex: Female : 1960 Arrival Date: 07/01/2024 Time: 18:09 Bed 6 Private MD: Diagnosis: Constipation Presentation: 07/01 18:50 Chief complaint: Patient states: Constipation that has been an issue for > than 1 ph month, states, " I have to use an enema to use the restroom." States that last BM was today after using enema, also reports dizziness that comes and goes. Coronavirus screen: Vaccine status: Patient reports receiving the 2nd dose of the covid vaccine. Ebola Screen: No symptoms or risks identified at this time. Initial Sepsis Screen: Does the patient meet any 2 criteria? No. Patient's initial sepsis screen is negative. Does the patient have a suspected source of infection? No. Patient's initial sepsis screen is negative. Risk Assessment: Do you want to hurt yourself or someone else? Patient reports no desire to harm self or others. Onset of symptoms was July 01, 2024. 18:50 Method Of Arrival: Ambulatory ph 18:50 Acuity: SWATHI 3 ph Triage Assessment: 18:55 General: Appears in no apparent distress. well groomed, Behavior is calm, cooperative. ph Pain: Denies pain. Neuro: Reports dizziness. GI: Reports constipation. Historical: - Allergies: 18:54 No Known Allergies; ph - PMHx: 18:54 Diabetes - NIDDM; uterine cancer (Diabetes - NIDDM); ph - PSHx: 18:54 Bladder stretched; Cholecystectomy; Total abdominal hysterectomy; ph - Immunization history:: Adult Immunizations unknown. - Infectious Disease History:: Denies. - Social history:: Smoking status: Patient denies any tobacco usage or history of. Screenin:00 [facility] ED Fall Risk Assessment (Adult) History of falling in the last 3 months, bm8 including since admission No falls in past 3 months (0 pts) Confusion or Disorientation No (0 pts) Intoxicated or Sedated No (0 pts) Impaired Gait No (0 pts) Mobility Assist Device Used No (0 pt) Altered Elimination No (0 pt) Score/Fall Risk Level 0 - 2 = Low Risk Oriented to surroundings, Maintained a safe environment, Educated pt \\T\\ family on fall prevention, incl call for assistance when getting out of bed, Assessed \\T\\ reinforced patient's understanding of fall precautions, Hourly rounding (assess needs \\T\\ fall precautionary measures) done, Used ambulatory aids as needed (educated on \\T\\ assisted with), Used gait belt as appropriate. Abuse screen: Denies threats or abuse. Nutritional screening: No deficits noted. Tuberculosis screening: No symptoms or risk factors identified. Assessment: 21:00 Reassessment: Patient appears in no apparent distress at this time. Patient and/or bm8 family updated on plan of care and expected duration. Pain level reassessed. Patient is alert, oriented x 3, equal unlabored respirations, skin warm/dry/pink. General: Appears in no apparent distress. comfortable, Behavior is calm, cooperative, appropriate for age. Pain: Denies pain. Neuro: No deficits noted. Level of Consciousness is awake, alert, obeys commands, Oriented to person, place, time, situation, Appropriate for age. Cardiovascular: Denies chest pain, Heart tones S1 S2 present Capillary refill < 3 seconds in bilateral fingers Patient's skin is warm and dry. Respiratory: Airway is patent Respiratory effort is even, unlabored, Respiratory pattern is regular, symmetrical, Breath sounds are clear bilaterally. GI: Abdomen is flat, non-distended, Bowel sounds present X 4 quads. Abd is soft and non tender X 4 quads. Reports constipation. : No signs and/or symptoms were reported regarding the genitourinary system. EENT: No signs and/or symptoms were reported regarding the EENT system. Derm: No signs and/or symptoms reported regarding the dermatologic system. Musculoskeletal: No signs and/or symptoms reported regarding the musculoskeletal system. 23:23 Reassessment: Patient appears in no apparent distress at this time. Patient and/or bm8 family updated on plan of care and expected duration. Pain level reassessed. Patient is alert, oriented x 3, equal unlabored respirations, skin warm/dry/pink. Patient denies pain at this time. Patient states feeling better. 07/02 00:21 Reassessment: Patient appears in no apparent distress at this time. Patient and/or bm8 family updated on plan of care and expected duration. Pain level reassessed. Patient is alert, oriented x 3, equal unlabored respirations, skin warm/dry/pink. pt states that she is ready to go home Patient denies pain at this time. Patient states feeling better. Vital Signs: 07/01 18:50 BP 110 / 63; Pulse 69; Resp 18; Temp 97; Pulse Ox 100% on R/A; ph 21:00 BP 123 / 61; Pulse 63; Resp 14; Temp 97.6; Pulse Ox 100% ; Pain 0/10; bm8 23:23 BP 117 / 61; Pulse 68; Resp 17; Temp 97; Pulse Ox 97% ; Pain 0/10; bm8 07/02 00:21 BP 120 / 71; Pulse 62; Resp 18; Temp 97; Pulse Ox 100% ; Pain 0/10; bm8 21:00 Pain Scale: Adult bm8 23:23 Pain Scale: Adult bm8 07/02 00:21 Pain Scale: Adult bm8 [place] Coma Score: 07/01 21:00 Eye Response: spontaneous(4). Motor Response: obeys commands(6). Verbal Response: bm8 oriented(5). Total: 15. 23:23 Eye Response: spontaneous(4). Motor Response: obeys commands(6). Verbal Response: bm8 oriented(5). Total: 15. 07/02 00:21 Eye Response: spontaneous(4). Motor Response: obeys commands(6). Verbal Response: bm8 oriented(5). Total: 15. ED Course: 07/01 18:14 Patient arrived in ED. mg5 18:49 Audra Morales FNP-C is [facility]. kb 18:49 Simon Bhatia DO is Attending Physician. kb 18:53 Triage completed. ph 18:55 Arm band placed on. ph 20:16 Marie Frances, RN is Primary Nurse. al5 20:17 Basic Metabolic Panel Sent. vk 20:17 Hepatic Function Sent. vk 20:17 Magnesium Sent. vk 20:17 Troponin High Sensitivity Sent. vk 21:00 Patient has correct armband on for positive identification. Placed in gown. Bed in low bm8 position. Call light in reach. Side rails up X 1. Adult w/ patient. Client placed on continuous cardiac and pulse oximetry monitoring. NIBP monitoring applied. safety risk lead on. Pulse ox on. NIBP on. Door closed. Noise minimized. Warm blanket given. Pillow given. Head of bed elevated. 21:00 No provider procedures requiring assistance completed. Inserted saline lock: 22 gauge bm8 in left antecubital area, using aseptic technique. Flushed with 10 mL NS. Patient maintains SpO2 saturation greater than 95% on room air. 21:03 Report received from kirt nguyen. bm8 22:34 Abdomen In Process Unspecified. EDMS 07/02 00:21 Provided Education on: post er care, follow up with GI. bm8 00:21 IV discontinued, intact, bleeding controlled, No redness/swelling at site. Pressure bm8 dressing applied. Administered Medications: No medications were administered Medication: 07/01 21:00 VIS not applicable for this client. bm8 Outcome: 07/02 00:18 Discharge ordered by . kb 00:21 Discharged to home ambulatory, bm8 00:21 Condition: stable 00:21 Discharge instructions given to patient, family, Instructed on discharge instructions, follow up and referral plans. no drinking with medication, no driving heavy equipment, medication usage, safety practices, Demonstrated understanding of instructions, follow-up care, medications, Prescriptions given X 00:43 Patient left the ED. bm8 Signatures: Dispatcher [employer] EDWV Audra Morales, PEDIATRIC IMMUNOLOGIST-C PEDIATRIC IMMUNOLOGIST-Annabelle Gordon, RN RN [facility] mg5 Mila Brooke Brad RN RN bm8 Marie Frances, KIRT RN al5 Corrections: (The following items were deleted from the chart) 07/01 22:14 21:08 In radiology for Abdomen Pelvis W Con+CT.RAD.BRZ. EDWV EDMS
[2024-07-02 01:00] VITALS: TEMP 97
[2024-07-02 01:01] VITALS: BP 120/71; O2SAT 100
--- NOTE | 2024-07-02 01:41 | RAD REPORT ---
EXAM: CT Abdomen and Pelvis With Intravenous Contrast CLINICAL HISTORY: Abd pain, constipation, hx of diabetes, uterine cancer, bladder stretched, kayla, hystero. TECHNIQUE: Axial computed tomography images of the abdomen and pelvis with intravenous contrast. Sagittal and coronal reformatted images were created and reviewed. This CT exam was performed using one or more of the following dose reduction techniques: automated exposure control, adjustment of the mA a nd/or kV according to patient size, and/or use of iterative reconstruction technique. COMPARISON: CT Chest Abdomen Pelvis 05/20/2024. FINDINGS: Lung bases: Unremarkable. No mass. No consolidation. ABDOMEN: Liver: Unremarkable. No mass. Gallbladder and bile ducts: There has been a cholecystectomy. No ductal dilation. Pancreas: Unremarkable. No mass. No ductal dilation. Spleen: Unremarkable. No splenomegaly. Adrenals: Unremarkable. No mass. Kidneys and ureters: Normal renal cortical enhancement. No calculi. No hydronephrosis. 2.1 cm lef t renal cyst similar to the prior. No follow-up imaging is recommended. JACR 2018 Sep; 264-273, Management of the Incidental Renal Mass on CT, [employer] 2020; 814-848, Bosniak Classification of Cystic Renal Masses, Version 2019. Stomach and bowel: Moderate stool. No bowel obstruction. No appreciable mucosal thickening. PELVIS: Appendix: Normal caliber appendix. No findings to suggest acute appendicitis. Bladder: The urinary bladder is distended. Reproductive: There has been a hysterectomy. No adnexal cysts or masses are identified. ABDOMEN and PELVIS: Intraperitoneal space: Unremarkable. No free air. No significant fluid collection. Bones/joints: Multilevel spondylosis. No acute fracture. No dislocation. Soft tissues: Unremarkable. Vasculature: Unremarkable. No abdominal aortic aneurysm. Lymph nodes: Unremarkable. No enlarged lymph nodes. IMPRESSION: 1. Moderate stool. No bowel obstruction. 2. Other findings as above. Electronically signed by: Sofi Duffy MD 07/02/2024 12:14 AM [facility] Due to temporary technical issues with the PACS/[employer] reporting system, reports are being mike d by the in-house radiologist without review as a courtesy to ensure prompt reporting the interpreting radiologist is fully responsible for the content of the report. Transcribed Date/Time: 07/02/2024 1:41 AM
== END 2024-07-02 00:43 | disposition home or self-care (01) ==
LOC: ER 18:09
DX: K59.00 Constipation, unspecified (principal); E11.9 Type 2 diabetes mellitus without complications
CPT/HCPCS: 93005; 85025; 81001; 80048; 36415; 83735; 85610; 80076; 85730; 84484; 74177; Q9967